=== PATIENT | male | born 1935 | race Caucasian/White ===

== ENCOUNTER 2018-04-19 16:21 | Inpatient (IN) | payer MEDICARE, SELFPAY ==
[2018-04-19] VITALS (7 sets, daily range): BP systolic 126–157; BP diastolic 62–115; PULSE 66–91; RESP 16–22; TEMP 36.8–37.2; O2SAT 88–95
--- NOTE | 2018-04-19 16:51 | DI.RAD.S_ITS ---
PROCEDURE: XR CHEST 2V INDICATIONS: right sided effusion TECHNIQUE: 2 views of the chest were acquired. COMPARISON: ABHINAV Yee, XR CXR 2V, 05/05/2014, 10:44. JAIDEN Yee, CHEST 2 VIEW, 04/29/2014, 11:56. FINDINGS: Surgical changes and devices: None. Lungs and pleura: A moderate right-sided pleural effusion is seen, with overlying presumed atelectasis. No significant left-sided pleural effusion is seen. No pneumothorax. Mediastinum: The cardiac contours are within normal limits. The aorta demonstrates calcification and tortuosity. Bones and chest wall: No suspicious bony abnormalities. Age-appropriate bony degenerative changes are seen. Soft tissues appear unremarkable. IMPRESSION: Moderate right-sided pleural effusion. Dictated by: Eric Sweeney M.D. on 04/19/2018 at 16:15 Approved by: Eric Sweeney M.D. on 04/19/2018 at 16:16
[2018-04-19 17:06] LABS: Add Manual Diff / Slide Review NO; Basophils Percent Auto 0.1 % (0-2); Hematocrit 43.2 % (41-53); Hemoglobin 14.5 g/dL (13.5-17.5); Lymphocytes Percent Auto 3.3 % (25-40); Mean Corpuscular HGB Conc 33.5 % (30-36); Mean Corpuscular Hemoglobin 31.7 PG (26-34); Mean Corpuscular Volume 94.5 fL (80-100); Neutrophils Absolute Auto 10300 /uL (3000-5900); Neutrophils Percent Auto 90.6 % (50-75); Platelet Count 145 X10^3/uL (150-400); Red Blood Cell Count 4.57 X10^6/uL (4.5-5.9); Red Cell Distribution Width 15.7 % (11.6-14.8); White Blood Cell Count 11.4 X10^3/uL (4.5-11.0)
--- NOTE | 2018-04-19 17:11 | PC.NURSE ---
Sent from Dr. Slaughter for fever, chest pain and significant pleural effusion. No information received from Dr. Slaughter's office by fax.
--- NOTE | 2018-04-19 17:16 | PC.NURSE ---
Dr. pat aware of sat 88%. States to tolerate sat 88 and above.
[2018-04-19 17:19] LABS: Lactate (Lactic Acid) 1.7 mmol/L (0.7-2.1)
[2018-04-19 17:25] LABS: BUN Creatinine Ratio 42.9 (6-22); Blood Urea Nitrogen 30 mg/dL (9-20); Calcium 9.2 mg/dL (8.4-10.2); Carbon Dioxide 35 mmol/L (22-32); Chloride 92 mmol/L (98-107); Estimated Glomerular Filt Rate > 60.0 mL/min (>60); Glucose 127 mg/dL (80-110); HEMOLYSIS < 15 (0-50); Potassium 4.3 mmol/L (3.4-5.1); Sodium 132 mmol/L (137-145)
[2018-04-19 17:55] LABS: Procalcitonin 0.06 ng/mL (<0.5)
--- NOTE | 2018-04-19 18:19 | DI.CT.S_ITS ---
PROCEDURE: CT CHEST ABD PEL W CON INDICATIONS: Right effusion - mass?. History of non-Hodgkin's lymphoma in 2007. TECHNIQUE: After the administration of oral and intravenous contrast, 5 mm thick sections acquired from the lung apices to the symphysis. 5 mm coronal and sagittal reformats were performed, with additional 7 mm coronal MIP reformats through the lungs. For radiation dose reduction, the following was used: automated exposure control, adjustment of mA and/or kV according to patient size. COMPARISON: [facility], RG, XR CXR 2V, 05/05/2014, 10:44. [facility], CR, XR CHEST 2V, 04/19/2018, 16:37. FINDINGS: Image quality: Excellent. CHEST: Lungs and pleura: No acute airspace opacities. Moderate right pleural effusion. There is right basilar compression atelectasis. No pneumothorax. Central and peripheral airways appear patent and normal in caliber. Mediastinum: Heart size is normal. No pericardial effusion. No mediastinal or hilar adenopathy by size criteria. Thoracic aorta and central pulmonary arteries are normal in size. Esophagus is normal in caliber. No hiatal hernia. Chest wall: No axillary or supraclavicular adenopathy by size criteria. Thyroid gland is unremarkable. ABDOMEN: Solid organs: Liver is normal in size and enhancement. Gallbladder is full of gallstones. Biliary system is non dilated. Pancreas enhances normally. Spleen is normal in size and enhancement. No adrenal nodules. Kidneys demonstrate normal size and enhancement, without hydronephrosis. Peritoneum and bowel: There is a percutaneous gastrostomy. Bowel loops demonstrate normal wall thickness and caliber. There are numerous colonic diverticula. No evidence for acute diverticulitis. No free fluid or air. Nodes and vessels: No retroperitoneal or mesenteric adenopathy by size criteria. Aorta and inferior vena cava are normal in size. Miscellaneous: No ventral hernias. PELVIS: Genitourinary: Bladder wall thickness is normal. Prostate is enlarged. Miscellaneous: No inguinal hernias or adenopathy. Bones: No suspicious bony lesions. No vertebral body compression fractures. There are degenerative changes in the thoracic and lumbar spine. IMPRESSION: 1. Moderate right pleural effusion. 2. Right basilar compression atelectasis. 3. Cholelithiasis. 4. Diverticulosis without acute diverticulitis. 5. Enlarged prostate. Dictated by: Mei Pennington M.D. on 04/19/2018 at 19:36 Approved by: Mei Pennington M.D. on 04/19/2018 at 19:47
--- NOTE | 2018-04-19 18:26 | ED_ITS ---
HPI - Recheck/Abnormal Lab/Rx General Chief Complaint: Recheck/Abnormal Lab/Rx Stated Complaint: SENT FOR THOROCENTESIS History of Present Illness HPI narrative: HPI 82-year-old male with history of CHF, A. fib (no anticoagulation), hypothyroidism, non-Hodgkin's lymphoma (in remission 10+years, with secondary esophageal scarring s/p PEG tube) presents with worsening shortness of breath, cough, and subjective fevers for the last 2 days, noted to have a recurrent right pleural effusion (drained 4 times previously). Patient denies chest pain, shortness breath, continues to pass flatus and stool at baseline. M/S/F/SocHx notable for: please see HPI; remainder reviewed with patient and in chart. ROS: Negative constitutional, eye, cardiovascular, pulmonary, GI, , MSK, skin , neurologic, psychiatric, endocrine unless noted in the HPI. Exam Gen: Pleasant, non-toxic appearing, resting comfortably. HEENT: NC, AT, PEERL, EOMI. Resp: breath sounds present in the right apex, left lung with breath sounds, right lung base with absent breath sounds, normal work of breathing. Bedside ultrasound and bilateral lung zones 1, 2, and the hemidiaphragm with no effusion on left side, 3+ B-lines on all left side lung zones, and right-sided hemidiaphragm and lung zone one with moderate to large pleural effusion, apex with lung sliding and 3+ B-lines. Card: Regular rate and rhythm with no murmurs, rubs, or gallops, extremities warm and well perfused. Bedside ultrasound of an apical 4 chamber view, parasternal long, parasternal short without pericardial effusion. GI: Non-tender to palpation throughout all quadrants, no focal tenderness at McBurney's point, negative Garcia's sign, non-distended, no rebound or guarding. : No suprapubic tenderness to palpation. MSK: No visible deformities, strength and tone without visually appreciable deficit. Skin: Normal color with no visible lesions. Neuro: AO x 3, no facial asymmetry, vision and hearing WNL. Psych: Mood and affect appropriate. Labs / Imaging: CXR: moderate right-sided pleural effusion. WBC 11.4, HB 14.5, sodium 132, potassium 4.3, lactic acid 1.7, BNP 2000, procalcitonin 0.06 MDM Previous chart, nursing note, labs, imaging, and vitals reviewed. A: 82-year-old male with history of CHF, A. fib (no anticoagulation), hypothyroidism, non-Hodgkin's lymphoma (in remission 10+years, with secondary esophageal scarring s/p PEG tube) presents with worsening shortness of breath, cough, and subjective fevers for the last 2 days, noted to have a recurrent right pleural effusion (drained 4 times previously). DDx: effusion 2/2 pneumonia, malignancy, CHF. Evaluation: patient with moderate to large right side effusion, SaO2 88% on room air. Based on history and overall clinical trajectory, as well as an absence of significant leukocytosis, and a negative procalcitonin strongly doubt pneumonia. Patient admitted for drainage by IR and further management as appropriate. Blood cultures ordered and pending. Disposition: patient admitted for further care. Impression: right-sided effusion Related Data Home Medications Medication Instructions Recorded Confirmed allopurinol 300 mg PO DAILY 04/19/18 04/19/18 amiodarone 200 mg PO DAILY 04/19/18 04/19/18 aspirin 81 mg PO DAILY 04/19/18 04/19/18 beclomethasone dipropionate [Qvar 1 puff INHALATION DIRECTED 04/19/18 RediHaler] beclomethasone dipropionate [Qvar 2 puff INHALATION Q12H 04/19/18 04/19/18 RediHaler] ferrous sulfate 325 mg PO DAILY 04/19/18 04/19/18 furosemide 20 mg PO DAILY 04/19/18 04/19/18 ipratropium-albuterol [Combivent 1 puff INHALATION Q6H PRN 04/19/18 04/19/18 Respimat] levothyroxine 112 mcg PO DAILY 04/19/18 04/19/18 loratadine 5 mg PO DAILY 04/19/18 04/19/18 ondansetron HCl [Zofran] 4 mg PO Q6-8H PRN 04/19/18 04/19/18 Allergies Allergy/AdvReac Type Severity Reaction Status Date / Time Sulfa (Sulfonamide Allergy Severe INABILITY Unverified 12/27/17 12:10 Antibiotics) TO BREATH [SULFA (SULFONAMIDE ANTIBIOTICS)] tetanus and diphtheria Allergy Severe MEMORY Unverified 12/27/17 12:10 toxoids LOSS, [TETANUS & DIPHTHERIA SWEATING TOXOIDS] Tetracyclines [TETRACYCLINES] Allergy Severe INABILITY Unverified 12/27/17 12:10 TO BREATH codeine [CODEINE] Allergy Intermediate NAUSEA Unverified 12/27/17 12:10 morphine [MORPHINE] Allergy Intermediate NAUSEA Unverified 12/27/17 12:10 Penicillins [PENICILLINS] Allergy Intermediate RASH Unverified 12/27/17 12:10 PFSH Social History Smoking Status: Never smoker Exam Initial Vital Signs Initial Vital Signs: Vital Signs Temperature 98.3 F 04/19/18 16:27 Pulse Rate 91 H 04/19/18 16:27 Respiratory Rate 16 04/19/18 16:27 Blood Pressure 126/62 H 04/19/18 16:27 Pulse Oximetry 92 04/19/18 16:27 Course Orders Ordered: ED Orders 04/19/18 16:50 B Type Natriuretic Peptide Stat Basic Metabolic Panel Stat Blood Culture Stat Complete Blood Count AUTO DIFF Stat Lactate (Lactic Acid) Stat Procalcitonin Stat 04/19/18 16:51 XR chest 2V Stat 04/19/18 18:17 CT chest w con Stat Troponin I Stat EKG-12 Lead Stat 04/19/18 18:19 CT chest abd pel w con Stat Vital Signs - 8 hr 04/19/18 16:27 04/19/18 17:00 04/19/18 17:15 Temperature 98.3 F Pulse Rate 91 H 68 70 Respiratory Rate 16 22 20 Blood Pressure 126/62 H Blood Pressure [Left Arm] 148/90 H Pulse Oximetry 92 92 88 L 04/19/18 18:02 Temperature Pulse Rate 66 Respiratory Rate 20 Blood Pressure Blood Pressure [Left Arm] 139/76 H Pulse Oximetry 95 MDM - Recheck/Abnormal Lab/Rx Lab Data Result diagrams: 04/19/18 16:50 04/19/18 16:50 Lab Results 04/19/18 04/19/18 04/19/18 Range/Units 16:50 16:50 16:50 WBC 11.4 H (4.5-11.0) X10^3/uL RBC 4.57 (4.5-5.9) X10^6/uL Hgb 14.5 (13.5-17.5) g/dL Hct 43.2 (41-53) % MCV 94.5 (80-100) fL MCH 31.7 (26-34) PG MCHC 33.5 (30-36) % RDW 15.7 H (11.6-14.8) % Plt Count 145 L (150-400) X10^3/uL Neut % (Auto) 90.6 H (50-75) % Lymph % (Auto) 3.3 L (25-40) % [place] % (Auto) 6.0 (3-14) % Eos % (Auto) 0.0 L (2-4) % Baso % (Auto) 0.1 (0-2) % Neut # (Auto) 33173 H (9453-6288) /uL Sodium 132 L (137-145) mmol/L Potassium 4.3 (3.4-5.1) mmol/L Chloride 92 L (98-107) mmol/L Carbon Dioxide 35 H (22-32) mmol/L BUN 30 H (9-20) mg/dL Creatinine 0.70 (0.66-1.25) mg/dL Estimated GFR > 60.0 (>60) mL/min BUN/Creatinine Ratio 42.9 H (6-22) Glucose 127 H (80-110) mg/dL Lactate (0.7-2.1) mmol/L Calcium 9.2 (8.4-10.2) mg/dL B-Natriuretic Peptide 2000.0 H (<100) Procalcitonin 0.06 (<0.5) ng/mL 04/19/18 Range/Units 16:50 WBC (4.5-11.0) X10^3/uL RBC (4.5-5.9) X10^6/uL Hgb (13.5-17.5) g/dL Hct (41-53) % MCV (80-100) fL MCH (26-34) PG MCHC (30-36) % RDW (11.6-14.8) % Plt Count (150-400) X10^3/uL Neut % (Auto) (50-75) % Lymph % (Auto) (25-40) % [place] % (Auto) (3-14) % Eos % (Auto) (2-4) % Baso % (Auto) (0-2) % Neut # (Auto) (6401-7721) /uL Sodium (137-145) mmol/L Potassium (3.4-5.1) mmol/L Chloride (98-107) mmol/L Carbon Dioxide (22-32) mmol/L BUN (9-20) mg/dL Creatinine (0.66-1.25) mg/dL Estimated GFR (>60) mL/min BUN/Creatinine Ratio (6-22) Glucose (80-110) mg/dL Lactate 1.7 (0.7-2.1) mmol/L Calcium (8.4-10.2) mg/dL B-Natriuretic Peptide (<100) Procalcitonin (<0.5) ng/mL Discharge Plan Departure Prescriptions: No Action amiodarone 200 mg Tablet 200 mg PO DAILY RF: 0 allopurinol 300 mg Tablet 300 mg PO DAILY RF: 0 furosemide 20 mg Tablet 20 mg PO DAILY RF: 0 levothyroxine 112 mcg Tablet 112 mcg PO DAILY RF: 0 beclomethasone dipropionate [Qvar RediHaler] 80 mcg/actuation Hfa Aerosol Breath Activated 1 puff Inhalation DIRECTED RF: 0 loratadine 5 mg/5 mL Solution 5 mg PO DAILY RF: 0 ondansetron HCl [Zofran] 4 mg/5 mL Solution 4 mg PO Q6-8H PRN (Reason: Nausea) RF: 0 ferrous sulfate 325 mg (65 mg iron) Tablet 325 mg PO DAILY RF: 0 aspirin 81 mg Tablet,Chewable 81 mg PO DAILY RF: 0 ipratropium-albuterol [Combivent Respimat] 20-100 mcg/actuation Mist 1 puff INHALATION Q6H PRN (Reason: Wheezing) RF: 0 beclomethasone dipropionate [Qvar RediHaler] 80 mcg/actuation Hfa Aerosol Breath Activated 2 puff INHALATION Q12H RF: 0
[2018-04-19 20:03] LABS: Troponin I 0.028 ng/mL (0.01-0.034)
--- NOTE | 2018-04-19 22:17 | PC.NURSE ---
Addendum entered by Ellen Patiño R.N. 04/19/18 22:36: Notified Dr. Back regarding Cardiac Rhythm: Afib with large Block as reported by ICU nurse. Also clarified that patient is able to feed with Peptamen supplementation via PEG tube as per home routine. Original Note: [facility] shift note: Patient admitted to from ED accompanied by . Ambulated from gurney to bed, steady. Continue on O2 at 2L via NC, O2 sat 96%. SOB at rest, accessory muscle use noted. Speaking in 2-3 word sentences. Occasional non productive cough. PEG tube to LLQ secured/no erythema to surrounding skin, placed 12 years ago. Does not take anything by mouth. brought nutritional supplement Peptamen from home (partially digested supplement) mizxed with Distilled water. BA active and call light within reach. 2146 Dr. Back at bedside.
--- NOTE | 2018-04-19 22:31 | PM.HP.1 ---
History of Present Illness Date Patient Seen: 04/19/18 Time Patient Seen: 18:32 Chief complaint: SENT FOR THOROCENTESIS Narrative: [age] years of age male presents to the emergency room complaint of of shortness of breath. Symptom onset in the past few days with worsening. Patient notes having similar symptoms in the past when he had pleural effusion that responded to the thoracentesis procedure. Patient normally is on Lasix at home once a day. He might increase the dose to twice daily when he seems to be retaining fluid. Patient with a history of non-Hodgkin's lymphoma that was diagnosed 12 years ago. 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 Patient has required a PEG tube to maintain adequate nutrition and fluids over the past 12 years. On prior thoracentesis of the fluid was analyzed and there was no malignant cells found. In the ER patient has a BNP of 2000. The pleural effusion is likely related to congestive heart failure. The pleural effusion is reported as a moderate amount of right pleural fluid effusion. Tentative plan to have patient undergo thoracentesis tomorrow with Interventional Radiology. Patient History Comment: Past medical history Non-Hodgkin's lymphoma Recurrent pleural effusion . Congestive heart failure Will provide Lasix at 40 mg IV q.12 hours. History of hypertension and hypothyroidism Continue home medications as tolerated Family history mother with multiple myeloma Family & Social History Family History: Reviewed 04/19/18 by Franko Back MD Social History: household members spouse Prior Living Arrangements House Safety & Behavioral: Feels Safe in Current Yes Environment Been Physically Hurt or No Threatened By a Person Suicidal Ideation Description None Tobacco & Substance use: Tobacco type cigarettes Smoking Status Never smoker alcohol intake frequency 0-2 drinks per day Substance Use Type does not use Meds Home Medications Medication Instructions Recorded Confirmed Type allopurinol 300 mg PO DAILY 04/19/18 04/19/18 History amiodarone 200 mg PO DAILY 04/19/18 04/19/18 History aspirin 81 mg PO DAILY 04/19/18 04/19/18 History beclomethasone dipropionate [Qvar 1 puff INHALATION DIRECTED 04/19/18 04/19/18 History RediHaler] beclomethasone dipropionate [Qvar 2 puff INHALATION Q12H 04/19/18 04/19/18 History RediHaler] ferrous sulfate 325 mg PO DAILY 04/19/18 04/19/18 History furosemide 20 mg PO DAILY 04/19/18 04/19/18 History ipratropium-albuterol [Combivent 1 puff INHALATION Q6H PRN 04/19/18 04/19/18 History Respimat] levothyroxine 112 mcg PO DAILY 04/19/18 04/19/18 History loratadine 5 mg PO DAILY 04/19/18 04/19/18 History ondansetron HCl [Zofran] 4 mg PO Q6-8H PRN 04/19/18 04/19/18 History Allergies Allergy/AdvReac Type Severity Reaction Status Date / Time Sulfa (Sulfonamide Allergy Severe INABILITY Unverified 12/27/17 12:10 Antibiotics) TO BREATH [SULFA (SULFONAMIDE ANTIBIOTICS)] tetanus and diphtheria Allergy Severe MEMORY Unverified 12/27/17 12:10 toxoids LOSS, [TETANUS & DIPHTHERIA SWEATING TOXOIDS] Tetracyclines [TETRACYCLINES] Allergy Severe INABILITY Unverified 12/27/17 12:10 TO BREATH codeine [CODEINE] Allergy Intermediate NAUSEA Unverified 12/27/17 12:10 morphine [MORPHINE] Allergy Intermediate NAUSEA Unverified 12/27/17 12:10 Penicillins [PENICILLINS] Allergy Intermediate RASH Unverified 12/27/17 12:10 Review of Systems Review of Systems A 10 point review of system was negative except for the symptoms of cough and shortness of breath. No recent fevers and chills no nausea no vomiting no chest pain. Exam Vital Signs (past 8 hours): - 04/19/18 16:27 04/19/18 17:00 04/19/18 17:15 Temperature 98.3 F Pulse Rate 91 H 68 70 Respiratory Rate 16 22 20 Blood Pressure 126/62 H Blood Pressure [Left Arm] 148/90 H Pulse Oximetry 92 92 88 L 04/19/18 18:02 04/19/18 19:14 04/19/18 20:41 Temperature 99.0 F Pulse Rate 66 70 75 Respiratory Rate 20 18 20 Blood Pressure 157/107 H Blood Pressure [Left Arm] 139/76 H 148/70 H Pulse Oximetry 95 95 95 Oxygen Delivery Method Nasal Cannula Oxygen Flow Rate 1 Narrative Exam Narrative: General appearance Fairly cachectic appearing male with [id number] protein calorie malnutrition Skin No rashes or lesions. Psychiatric Well oriented mood is pleasant cooperative affect is appropriate Eyes Pupils are equal round and reactive to light Ears nose and throat Hearing grossly intact nose septum to midline no oropharyngeal lesions noted Respiratory fairly clear to auscultation no wheezes crackles Cardiovascular Regular rate rhythm no murmur rubs or gallops GI Fairly soft nontender positive bowel sounds and no organomegaly is noted Neurologic No focal neurologic changes cranial nerves 2-12 grossly intact Musculo skeletal 5/5 motor strength, range of motion is normal, no clubbing Lymph nodes No lymphadenopathy to neck or axilla Objective Labs Result Diagrams: 04/19/18 16:50 04/19/18 16:50 Labs: Laboratory Results - last 24 hr 04/19/18 04/19/18 04/19/18 16:50 16:50 16:50 WBC 11.4 H RBC 4.57 Hgb 14.5 Hct 43.2 MCV 94.5 MCH 31.7 MCHC 33.5 RDW 15.7 H Plt Count 145 L Neut % (Auto) 90.6 H Lymph % (Auto) 3.3 L [place] % (Auto) 6.0 Eos % (Auto) 0.0 L Baso % (Auto) 0.1 Neut # (Auto) 63165 H Sodium 132 L Potassium 4.3 Chloride 92 L Carbon Dioxide 35 H BUN 30 H Creatinine 0.70 Estimated GFR > 60.0 BUN/Creatinine Ratio 42.9 H Glucose 127 H Lactate Calcium 9.2 Troponin I B-Natriuretic Peptide 2000.0 H Procalcitonin 0.06 04/19/18 04/19/18 16:50 18:35 WBC RBC Hgb Hct MCV MCH MCHC RDW Plt Count Neut % (Auto) Lymph % (Auto) [place] % (Auto) Eos % (Auto) Baso % (Auto) Neut # (Auto) Sodium Potassium Chloride Carbon Dioxide BUN Creatinine Estimated GFR BUN/Creatinine Ratio Glucose Lactate 1.7 Calcium Troponin I 0.028 B-Natriuretic Peptide Procalcitonin Assessment & Plan Plan: Assessment/Plan Narrative: 1. Right right pleural effusion Thoracentesis in a.m. by intervention Radiology as planned. Lasix 40 mg IV q.12 hours being provided. 2. History of non-Hodgkin's lymphoma 12 years ago status post radiation therapy with side effect of esophageal occlusion status post PEG placement 12 years ago 3. History of hypothyroidism and hypertension continue home medications as tolerated 4. Congestive heart failure Lasix 40 mg IV q.12 hours continue to monitor the patient's weight and I&Os. Discharge planning Patient will likely require several days in the hospital before appropriate for discharge to home. Time Spent With Patient Time with patient: Greater than 35 minutes (65 min)
[2018-04-20] VITALS (11 sets, daily range): BP systolic 124–161; BP diastolic 65–96; PULSE 63–75; RESP 14–18; TEMP 36.6–37; O2SAT 88–100
--- NOTE | 2018-04-20 | DI.RAD.S_ITS ---
PROCEDURE: XR CHEST 1V INDICATIONS: POST THORACENTESIS TECHNIQUE: One view of the chest was acquired. COMPARISON: [facility], CR, XR CHEST 2V, 04/19/2018, 16:37. FINDINGS: Surgical changes and devices: None. Lungs and pleura: There is interval decrease in amount of right pleural effusion consistent with recent thoracentesis. Trace amount of residual right pleural effusion and right basilar atelectasis is seen. No gross pneumothorax. Mediastinum: Mediastinal contours appear normal. Heart size is enlarged. Bones and chest wall: No suspicious bony lesions. Overlying soft tissues appear unremarkable. IMPRESSION: Post thoracentesis with trace amount of residual right pleural effusion and right atelectasis. No gross pneumothorax. of residual Dictated by: Maciej Black M.D. on 04/20/2018 at 14:25 Approved by: Maciej Black M.D. on 04/20/2018 at 14:33
--- NOTE | 2018-04-20 | PATH_ITS ---
Note [facility] Accession Number: [id number] TESTS RESULT FLAG UNITS REF RANGE LAB Clinician Provided Cytology Information No. of containers..01 Other (Miscellaneous) 01 RT PLEURAL EFFUSION DIAGNOSIS: RT PLEURAL EFFUSION NEGATIVE FOR MALIGNANT CELLS. Pathologist ICD10: 02 J90 Aime Bone MD, Pathologist NPI- [id number] Isaias Koch, Chief Lending Officer ([facility]) 01 60 CC, YELLOW, CLEAR /LCS FLAG LEGEND: L-Low Normal,H-High Normal,LL-Alert Low,HH-Alert High <-Panic Low,>-Panic High,A-Abnormal,AA-Critical Abnormal Performed at: 01 =Z [facility] [address] [place] [address] [address] [facility], [place] [address] Roger Crespo MD, 02 LCLWA [facility] [address] [place] [id number] Danny Doll MD, Performed at: 01 [facility] [address], [place], [place] [id number] MD Roger Crespo MD Phone: [phone]
--- NOTE | 2018-04-20 | DI.US.S_ITS ---
PROCEDURE: US THORACENTESIS INDICATIONS: PLEURAL EFFUSION; THERAPEAUTIC AND DIAGNOSTIC TECHNIQUE: The indications, alternatives, benefits, risks, and complications of the procedure were explained to the patient. Written informed consent was obtained and placed in the chart. The chest was examined sonographically, and an appropriate site was chosen for thoracentesis. The skin was prepared and draped in the usual sterile fashion, and 1% lidocaine was infiltrated from the skin down through the pleural surface. A 19-gauge catheter-covered needle was then introduced into the pleural space, the catheter was advanced and the needle was withdrawn, and thereafter pleural fluid was aspirated. The catheter was then removed and a dressing was applied. COMPARISON: None. FINDINGS: Access site: Right lower posterior hemithorax. Needle: One-Step centesis catheter with introducer needle. Fluid volume and description: A total of 1.1 L of clear yellow fluid was removed from the right hemithorax. Fluid sent for diagnostic testing: Initial pleural fluid was sent for diagnostic testing. Medications: 1% lidocaine for local anaesthesia. Complications: Patient reports improved breathing after the procedure and denies any pain or discomfort. A postprocedure chest radiograph demonstrates a small pneumothorax at the right lung base. IMPRESSION: Ultrasound-guided right thoracentesis. A small right basilar pneumothorax is seen on the immediate post-thoracentesis chest radiograph. A followup chest radiograph in 2 hours is recommended. These results and recommendations were discussed with the patient's inpatient provider Dr. Franko Back at [facility] at 2:25 PM on 04/20/2018. Dictated by: Camilo Singh M.D. on 04/20/2018 at 14:36 Approved by: Camilo Singh M.D. on 04/20/2018 at 14:40
--- NOTE | 2018-04-20 | DI.RAD.S_ITS ---
PROCEDURE: XR CHEST 1V INDICATIONS: POST THORACENTESIS PNEUMO FOLLOW UP TECHNIQUE: One view of the chest was acquired. COMPARISON: [facility], US, US THORACENTESIS, 04/20/2018, 13:41. [facility], CT, CT CHEST ABD PEL W CON, 04/19/2018, 18:46. [facility], CR, XR CHEST 2V, 04/19/2018, 16:37. [facility], CR, XR CHEST 1V, 04/20/2018, 13:50. FINDINGS: Surgical changes and devices: Multiple EKG leads and a monitoring device project over the chest and upper abdomen. Lungs and pleura: Small left pleural effusion, which is decreased from chest radiograph of 04/19/18 but similar to post thoracocentesis chest radiograph of 04/20/18. No pneumothorax. The previous finding concerning for pneumothorax likely represents the right minor fissure demonstrating an atypical contour. Bibasilar pulmonary opacities are noted. Mediastinum: Mediastinal contours appear normal. Calcification of the thoracic aorta noted. Heart size is normal. Bones and chest wall: Osseous structures are unchanged from prior exam, with persistent inferior subluxation of the right humeral head. IMPRESSION: No pneumothorax. Small residual left pleural effusion post-thoracentesis. Mild bibasilar atelectasis. Dictated by: Camilo Singh M.D. on 04/20/2018 at 16:04 Approved by: Camilo Singh M.D. on 04/20/2018 at 16:09
[2018-04-20] MEDS: METOPROLOL 25 MG TABLET PO (00:11)
[2018-04-20] MEDS: FUROSEMIDE 40 MG/4 ML VIAL IV ×3 (00:13→23:57)
[2018-04-20 08:15] LABS: Acinetobacter baumannii Not Detected (Not Detect); Candida albicans Not Detected (Not Detect); Candida glabrata Not Detected (Not Detect); Candida krusei Not Detected (Not Detect); Candida parapsilosis Not Detected (Not Detect); Candida tropicalis Not Detected (Not Detect); E. coli Not Detected (Not Detect); Enterobacter cloacae complex Not Detected (Not Detect); Enterobacteriaceae species Not Detected (Not Detect); Enterococcus species Not Detected (Not Detect); Haemophilus influenzae Not Detected (Not Detect); Listeria monocytogenes Not Detected (Not Detect); Neisseria meningitidis Not Detected (Not Detect); Proteus species Not Detected (Not Detect); Pseudomonas aeruginosa Not Detected (Not Detect); Serratia marcescens Not Detected (Not Detect); Staphylococcus species Not Detected (Not Detect); Streptococcus pneumonia Not Detected (Not Detect); Streptococcus pyogenes (Gr A) Not Detected (Not Detect); Streptococcus species Detected (Not Detect)
[2018-04-20 08:16] LABS: Streptococcus agalactiae (Gr B Detected (Not Detect)
--- NOTE | 2018-04-20 08:18 | PC.NURSE ---
Day shift: Call from Lab about Pt pos for strep B in blood. Dr Spence notified.
[2018-04-20] MEDS: ALLOPURINOL 300 MG TABLET PO (08:50)
[2018-04-20] MEDS: AMIODARONE 200 MG TABLET PO (08:50)
[2018-04-20] MEDS: FERROUS SULFATE 325 MG TABLET PO (08:51)
[2018-04-20] MEDS: LORATADINE 10 MG TABLET 5 MG PO (08:51)
[2018-04-20] MEDS: ASPIRIN 81 MG TAB PO (09:02)
[2018-04-20] MEDS: COMBIVENT 2 EACH INH (11:37)
[2018-04-20 11:49] LABS: INR 1.3 (0.9-1.3); Prothrombin Time 13.9 SECONDS (10.1-12.7)
--- NOTE | 2018-04-20 12:44 | CM.DANOTE ---
DCP Cont: Case received, EMR reviewed and met with patient. Introduced self and role. DCP template completed with information currently available. Patient is an 82 year old male who was admitted yesterday evening to the care of the hospitalist team. PCP: Dr. De La Cruz in [place], and Dr. Slaughter on [place]. Payer: confirmed: Medicare. Patient carries a diagnosis of Pleural Effusion, has history of Non-Hodgkins Lymphoma. Patient alert and oriented, by his side. Stated that he has had fluid retention before. Lives on [place] for the summer, and in [place] fall and winter months. Has a supportive as well. P: DCP to continue to plan and assess, home health may be an option. Sparkle Farias RN/[employer]
--- NOTE | 2018-04-20 12:45 | P.PN_ITS ---
Subjective Date Patient Seen: 04/20/18 Time Patient Seen: 12:42 Interval history: History of present illness Follow-up on patient with a right pleural effusion causing respiratory distress. We are waiting for patient to undergo therapeutic thoracentesis. Review of system Patient notes feeling much better since he was admitted yesterday. Note I started patient on Lasix at 40 mg IV q.12 hours. He normally just takes Lasix 20 mg once in the morning. No chest pain or shortness of breath no nausea Exam Vital Signs (past 8 hours): - 04/20/18 06:25 04/20/18 07:40 04/20/18 11:20 Temperature 98.6 F 97.9 F Pulse Rate 65 63 Respiratory Rate 16 14 Blood Pressure 161/96 H 147/89 H Pulse Oximetry 93 92 97 04/20/18 11:21 04/20/18 11:42 04/20/18 12:41 Temperature Pulse Rate 71 Respiratory Rate 18 Blood Pressure Pulse Oximetry 88 L 95 Oxygen Delivery Method Room Air Oxygen Flow Rate 0 Narrative Exam Narrative: General appearance Patient is awake and alert in no apparent distress. Vital signs is noted Psychiatric Well oriented no apparent distress mood is pleasant affect is appropriate Respiratory Fair breath sounds are noted bilateral no wheezes no crackles Cardiovascular Regular rate rhythm no murmurs noted GI Abdomen is soft nontender positive bowel sounds no masses no distension no guarding no bruits Neurologic No focal neurologic changes cranial nerves 2-12 grossly intact Objective Labs Result Diagrams: 04/19/18 16:50 04/19/18 16:50 Labs: Laboratory Results - last 24 hr 04/19/18 04/19/18 04/19/18 16:50 16:50 16:50 WBC 11.4 H RBC 4.57 Hgb 14.5 Hct 43.2 MCV 94.5 MCH 31.7 MCHC 33.5 RDW 15.7 H Plt Count 145 L Neut % (Auto) 90.6 H Lymph % (Auto) 3.3 L [place] % (Auto) 6.0 Eos % (Auto) 0.0 L Baso % (Auto) 0.1 Neut # (Auto) 27112 H PT INR Sodium 132 L Potassium 4.3 Chloride 92 L Carbon Dioxide 35 H BUN 30 H Creatinine 0.70 Estimated GFR > 60.0 BUN/Creatinine Ratio 42.9 H Glucose 127 H Lactate Calcium 9.2 Troponin I B-Natriuretic Peptide 2000.0 H Procalcitonin 0.06 A. baumannii (PCR) Leana albicans (PCR) C. glabrata (PCR) C. krusei (PCR) C. parapsilosis (PCR) C. tropicalis (PCR) Enterobacteriac sp PCR E. cloacae complex PCR Enterococcus sp PCR E. coli (PCR) H. influenzae (PCR) Klebsiella oxytoca PCR Klebsiella pneumoniae List. monocytogenes PCR N. meningitidis (PCR) Proteus species (PCR) Serratia marcescens PCR Staphylococcus sp PCR Staph aureus (PCR) mecA-Methicil Res Gene Streptococcus sp PCR Group A Strep (PCR) Strep agalactiae (PCR) Strep pneumoniae (PCR) P. aeruginosa (PCR) Ephraim/B-Vanco Res Genes KPC-Carbap Res Gene PCR 04/19/18 04/19/18 04/19/18 16:50 16:50 18:35 WBC RBC Hgb Hct MCV MCH MCHC RDW Plt Count Neut % (Auto) Lymph % (Auto) [place] % (Auto) Eos % (Auto) Baso % (Auto) Neut # (Auto) PT INR Sodium Potassium Chloride Carbon Dioxide BUN Creatinine Estimated GFR BUN/Creatinine Ratio Glucose Lactate 1.7 Calcium Troponin I 0.028 B-Natriuretic Peptide Procalcitonin A. baumannii (PCR) Not detected Leana albicans (PCR) Not detected C. glabrata (PCR) Not detected C. krusei (PCR) Not detected C. parapsilosis (PCR) Not detected C. tropicalis (PCR) Not detected Enterobacteriac sp PCR Not detected E. cloacae complex PCR Not detected Enterococcus sp PCR Not detected E. coli (PCR) Not detected H. influenzae (PCR) Not detected Klebsiella oxytoca PCR Not detected Klebsiella pneumoniae Not detected List. monocytogenes PCR Not detected N. meningitidis (PCR) Not detected Proteus species (PCR) Not detected Serratia marcescens PCR Not detected Staphylococcus sp PCR Not detected Staph aureus (PCR) Not detected mecA-Methicil Res Gene Not Reportable Streptococcus sp PCR Detected H Group A Strep (PCR) Not detected Strep agalactiae (PCR) Detected H Strep pneumoniae (PCR) Not detected P. aeruginosa (PCR) Not detected Ephraim/B-Vanco Res Genes Not Reportable KPC-Carbap Res Gene PCR Not Reportable 04/20/18 11:00 WBC RBC Hgb Hct MCV MCH MCHC RDW Plt Count Neut % (Auto) Lymph % (Auto) [place] % (Auto) Eos % (Auto) Baso % (Auto) Neut # (Auto) PT 13.9 H INR 1.3 Sodium Potassium Chloride Carbon Dioxide BUN Creatinine Estimated GFR BUN/Creatinine Ratio Glucose Lactate Calcium Troponin I B-Natriuretic Peptide Procalcitonin A. baumannii (PCR) Leana albicans (PCR) C. glabrata (PCR) C. krusei (PCR) C. parapsilosis (PCR) C. tropicalis (PCR) Enterobacteriac sp PCR E. cloacae complex PCR Enterococcus sp PCR E. coli (PCR) H. influenzae (PCR) Klebsiella oxytoca PCR Klebsiella pneumoniae List. monocytogenes PCR N. meningitidis (PCR) Proteus species (PCR) Serratia marcescens PCR Staphylococcus sp PCR Staph aureus (PCR) mecA-Methicil Res Gene Streptococcus sp PCR Group A Strep (PCR) Strep agalactiae (PCR) Strep pneumoniae (PCR) P. aeruginosa (PCR) Ephraim/B-Vanco Res Genes KPC-Carbap Res Gene PCR Assessment & Plan Plan: Assessment/Plan Narrative: 1. Right right pleural effusion Thoracentesis in a.m. by intervention Radiology as planned today. Lasix 40 mg IV q.12 hours was started last night when I admitted him. Note I submitted pleural fluid analysis orders for: LDH, WBC w/ diff, Culture. Total Protein, Glucose, pH, Cytology and Cholesterol 2. 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 History of hypothyroidism and hypertension continue home medications as tolerated 4. Congestive heart failure Lasix 40 mg IV q.12 hours started. continue to monitor the patient's weight and I&Os. Discharge planning Patient will likely require another day in the hospital before appropriate for discharge to home. Perhaps suitable for discharge to home tomorrow? Time Spent With Patient Time with patient: 25 - 35 minutes
--- NOTE | 2018-04-20 13:39 | PC.NURSE ---
Day shift: Pt left unit for thoracentisis at approx 1330. Via WC.
--- NOTE | 2018-04-20 14:32 | PC.NURSE ---
Day shift: Back on unit at approx 1430. He c/o nausea and is venting his feeding tube. Does not want Zofran at this time. Will give the held Lasix now though. Call light in reach.
[2018-04-20 14:35] LABS: Body Fluid Red Blood Cells 3782 /uL; Body Fluid Tot Nucleated Cells 3543 /uL
[2018-04-20 14:37] LABS: Albumin Body Fluid 1.8 g/dL; Glucose Body Fluid 105 mg/dL; LDH Body Fluid 251 U/L; Total Protein Body Fluid 3.6 g/dL
[2018-04-20 14:46] LABS: Body Fluid Color YELLOW
[2018-04-20 14:47] LABS: Body Fluid Appearance CLOUDY; Body Fluid Clotted? NO CLOTS PRESENT
[2018-04-20 15:20] LABS: Eosinophils Body Fluid 0 %; Mononuclear WBC Body Fluid 15 %; Other Cells Body Fluid 0 %; Polynuclear WBC Body Fluid 85 %
[2018-04-20 16:40] LABS: Cholesterol Body Fluid < 50 mg/dL
--- NOTE | 2018-04-20 21:35 | PC.NURSE ---
PATIENT IS UP WITH SBA AND WALKER FOR A LOOP AROUND THE NURSE STATION,NO SHORTNESS OF BREATH VERY STEADY ON HIS FEET.WALKED ON ROOM AIR MAINTAINED SATS MID 90'S,BACK IN BED ON 1L NC
[2018-04-21] VITALS (11 sets, daily range): BP systolic 121–147; BP diastolic 64–81; PULSE 60–97; RESP 16–20; TEMP 36.4–37.2; O2SAT 91–100
--- NOTE | 2018-04-21 03:16 | PC.NURSE ---
NOC Note: Pt reported feeling discomfort to left side of neck and jaw, he believes that his eustachian tube on the left is plugged up. He states that the MD looked in his ears prior to admit and told him they were fine but he stated that he get these symptoms often and would the MD to look into it in the morning.
[2018-04-21] MEDS: LEVOTHYROXINE 112 MCG TABLET PO (05:48)
[2018-04-21] MEDS: ASPIRIN 81 MG TAB PO (09:17)
[2018-04-21] MEDS: AMIODARONE 200 MG TABLET PO (09:17)
[2018-04-21] MEDS: COMBIVENT 2 EACH INH ×2 (09:17→22:32)
[2018-04-21] MEDS: FERROUS SULFATE 325 MG TABLET PO (09:17)
[2018-04-21] MEDS: ALLOPURINOL 300 MG TABLET PO (09:17)
[2018-04-21] MEDS: LORATADINE 10 MG TABLET 5 MG PO (09:18)
--- NOTE | 2018-04-21 11:25 | PM.PN.1 ---
Subjective Interval history: See comments under assessment. Patient states that overall he is feeling better but still feels fatigued and tired Exam Vital Signs (past 8 hours): - 04/21/18 06:05 04/21/18 09:21 Temperature 97.6 F 98.6 F Pulse Rate 97 H 60 Respiratory Rate 16 20 Blood Pressure 140/76 H 143/81 H Pulse Oximetry 98 97 Oxygen Delivery Method Nasal Cannula Oxygen Flow Rate 1 Narrative Exam Narrative: General: at bedside patient is NAD HEENT: Normocephalic atraumatic extraocular movement was intact pupils are equal round reactive diagnosis visualized sclera were clear oropharynx was clear Neck is supple without thyromegaly bruits or jugular venous distention Lungs: Clear to auscultation Heart: Regular rhythm S1-S2 was normal renal disease rubs murmurs gallops are present Abdomen rotund benign bowel sounds active. Peg in place left side of the abdomen surrounding skin without any changes of inflammation Extremities full range of motion no clubbing edema or cyanosis Neurologic grossly physiologic Psychiatric awake alert oriented x3. Mood and affect were normal. Skin: There is a blotchy more ecchymotic type eruption over the right shoulder supraclavicular area. Area was completely flat there were no vesicles, bullae. Objective Labs Result Diagrams: 04/19/18 16:50 04/19/18 16:50 Labs: Laboratory Results - last 24 hr 04/20/18 04/20/18 11:00 Unknown PT 13.9 H INR 1.3 Fluid Color Yellow Fluid Appearance Cloudy Fluid RBC 3782 Fld Tot Nucleated Cell 3543 Fluid Polynuclear WBCs 85 Fluid Mononuclear WBCs 15 Fluid Eosinophils 0 Body Fluid Clot No clots present Fluid Glucose 105 Fluid Total Protein 3.6 Fluid Albumin 1.8 Fluid LDH 251 Fluid Cholesterol < 50 Assessment & Plan Plan: Assessment/Plan Narrative: 1. Streptococcus group B bacteremia 1/3 bottles No evidence of sepsis white count is mildly elevated T-max in the prior 24 hr is 99.0 heart rate normal sinus rhythm Respiratory rate stable 18-20. Blood pressure is stable with systolics in the 140s. No noted skin infections the area around his PEG tube site is without inflammatory change. He does have a rash of the right supraclavicular area/right shoulder. It is not vesicular pustular bullous but flat anymore ecchymotic then erythematous suggestive of cellulitis. He does complain of a sore throat review of throat was without erythema or exudation. He also complains of left-sided neck area discomfort. States that this is related to his eustachian tube. Will start patient on Rocephin, check echocardiogram, check urine. There is nothing of the skin to culture. Although this is not group A Will check throat culture 2. Right right pleural effusion Thoracentesis was done by ultrasound guidance on 04/20/2018. 1.1 L of clear fluid was removed. A small apical right basilar pneumothorax was seen on the immediate post thoracentesis chest x-ray. Follow-up chest x-rays did not reveal any increase of the pneumothorax or subsequent notation of the pneumothorax His pleural fluid analysis revealed 3782 RBCs 3543 WBCs with 85% polys 15% monos. The total protein was 3.6 LDH 251 cholesterol less than 50. Cytology is not available cultures are no growth to date 3. 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 History of hypothyroidism and hypertension continue home medications as tolerated 5. Congestive heart failure Lasix 40 mg IV q.12 hours . He is minus 1150 cc over past 24 hr. I will continue the Lasix q.12h check BMP and BNP in a.m. Disposition
[2018-04-21] MEDS: FUROSEMIDE 40 MG/4 ML VIAL IV ×2 (13:26→23:55)
[2018-04-21] MEDS: METOPROLOL 25 MG TABLET PO ×2 (13:26→20:32)
--- NOTE | 2018-04-21 13:57 | CM.DPC ---
DCP Cont: Patient continues on IV medication secondary to bacteremia. Visited with and patient, stated he would be here for a few more days. Discussed discharge plan, and mentioned senior care. Patient and feel that home health would be better, and they also are a tight community on [place]. P: DCP to continue to plan and assess, and determine if home health will be an option. Sparkle Farias RN/[facility]
[2018-04-21 14:36] LABS: Bacteria Urine None Seen; RBC Urine None Seen (0-5/HPF); WBC Urine None Seen (0-5/HPF)
[2018-04-21 14:39] LABS: Appearance Urine UA CLEAR; Bilirubin Urine UA NEGATIVE (NEGATIVE); Color Urine UA YELLOW; Glucose Urine UA NEGATIVE (Normal); Ketones Urine UA NEGATIVE (NEGATIVE); Leukocyte Esterase Urine UA NEGATIVE (NEGATIVE); Nitrite Urine UA Negative (Negative); Occult Blood Urine UA NEGATIVE (Negative); Protein Urine UA NEGATIVE (Negative); Specific Gravity Urine UA <=1.005 (1.000-1.035); Urobilinogen Urine UA 0.2 E.U./dL (0.2)
[2018-04-21] MEDS: CEFTRIAXONE 2 GM/50 ML FROZ.PIGGY IV (14:52)
[2018-04-21 15:02] LABS: Culture Indicated Urine Cult Not Indicated; Urine Comments Microscopic Normal
[2018-04-22] VITALS (12 sets, daily range): BP systolic 91–151; BP diastolic 48–81; PULSE 62–77; RESP 14–18; TEMP 36.2–37.1; O2SAT 88–100
--- NOTE | 2018-04-22 | DI.ECHO.S_ITS ---
[facility]---------+ [facility] +---------+ : : [address] : : : : [id number] : : : : Phone: [phone] Echocardiogram Report + + :Name: RORY MARES Study Date: 04/22/2018 Height: 68 in : :[facility] Exam Location: IS Weight: 143 lb : : Gender: Male BSA: 1.8 m2 : :: 1935 Age: 82 yrs BP: 117/65 mmHg: :Reason For Study: BACTEREMIA : : Performed By: Leanne Kahn : :Referring: UNSPECIFIED : + + Interpretation Summary The left ventricle is normal in size. The ejection fraction is estimated to be 30-35%. There is moderate to severe global hypokinesis of the left ventricle. There is a mild dyssynchronous contraction pattern, consistent with a conduction abnormality. The right ventricle is mildly dilated. The right ventricular systolic function is normal. There is mild to moderate tricuspid regurgitation. The right ventricular systolic pressure is estimated at 35 mmHg assuming a right atrial pressure of 3 mm Hg. There is a small right-sided pleural effusion. No obvious valvular vegetation seen. if clinically suspect endocarditis, consider GERALDO. Procedure: A two-dimensional transthoracic echocardiogram with color flow and Doppler was performed. The study quality was technically adequate. There is no prior echocardiogram noted for this patient. The heart rate ranged between 65-70 bpm during the study. The patient was in normal sinus rhythm during the exam. The patient had a bundle branch block rhythm during the exam. Left Ventricle: There is mild concentric left ventricular hypertrophy. The left ventricle is normal in size. There is no thrombus. The ejection fraction is estimated to be 30-35%. There is moderate to severe global hypokinesis of the left ventricle. There is a mild dyssynchronous contraction pattern, consistent with a conduction abnormality. Diastolic function could not be accurately assessed due to unobtainable data. Right Ventricle: The right ventricle is mildly dilated. The right ventricular systolic function is normal. Atria: The left atrial size is normal. The right atrium is severely dilated. There is no Doppler evidence for an interatrial shunt. Mitral Valve: There is mild to moderate mitral annular calcification. The mitral valve chordae are thickened and/or calcified. The mitral valve leaflets appear mildly thickened, but open well. There is mild mitral regurgitation. Aortic Valve: The aortic valve is mildly calcified. The aortic valve opens well. There is no aortic valve stenosis. There is mild aortic regurgitation. Tricuspid Valve: Tricuspid leaflets are thickened. Chordae attached to the septal leaflets appears to be thickened. Do not appears to be typical obvious vegetation. There is mild to moderate tricuspid regurgitation. The right ventricular systolic pressure is estimated at 35 mmHg assuming a right atrial pressure of 3 mm Hg. Pulmonic Valve: The pulmonic valve is not well visualized. Great Vessels: The aortic root is normal size. The ascending aorta is normal in size. The aortic arch could not be visualized. The pulmonary is not well visualized. The IVC is of normal diameter and collapses greater than 50% with a sniff. This suggests a low right atrial pressure of 3 mm Hg. Pericardium/ Pleura There is no pericardial effusion. There is a small right-sided pleural effusion. MMode/2D Measurements & Calculations LVIDd: 4.8 cm LVOT diam: 1.9 cm LVIDs: 4.0 cm Ao root diam: 3.7 cm FS: 17.5 % asc Aorta Diam: 2.9 cm IVSd: 1.2 cm LVPWd: 1.1 cm LV garay. diameter/BSA (cm/m^2): 2.7 LV sys. diameter/BSA (cm/m^2): 2.2 LA A2 area: 14.3 cm2 RA long axis: 6.5 cm LA A4 area: 20.1 cm2 RA area: 27.4 cm2 LA length (vol): 6.2 cm RA vol: 97.2 ml LA vol: 39.5 ml RA : 54.9 ml/m2 LA vol index: 22.3 ml/m2 RVD1 (basal): 4.5 cm LVAd ap4: 29.0 cm2 TAPSE: 2.6 cm LVAs ap4: 25.4 cm2 LVLs ap4: 8.3 cm LVAd ap2: 28.9 cm2 LVLd ap2: 8.3 cm LVAs ap2: 21.0 cm2 LVLs ap2: 7.1 cm Doppler Measurements & Calculations Ao V2 max: 111.9 cm/sec LVOT Max Bobo: 87.2 cm/sec Ao V2 mean: 79.9 cm/sec LV V1 max P.0 mmHg Ao max P.0 mmHg LV V1 VTI: 13.7 cm Ao mean P.7 mmHg DANII(I,D): 2.2 cm2 Ao V2 VTI: 16.8 cm DANII(V,D): 2.1 cm2 sev ratio: 0.82 DANII indexed to BSA (cm^2/m^2): 1.2 Med Peak E' Bobo: 3.0 cm/sec TR max bobo: 282.1 cm/sec Lat Peak E' Bobo: 6.9 cm/sec TR max P.8 mmHg Reading Physician:PM
[2018-04-22 06:06] LABS: Add Manual Diff / Slide Review NO; Basophils Percent Auto 0.3 % (0-2); Eosinophils Percent Auto 0.5 % (2-4); Hematocrit 48.2 % (41-53); Hemoglobin 16.2 g/dL (13.5-17.5); Lymphocytes Percent Auto 6.1 % (25-40); Mean Corpuscular HGB Conc 33.7 % (30-36); Mean Corpuscular Hemoglobin 31.7 PG (26-34); Mean Corpuscular Volume 94.2 fL (80-100); Monocytes Percent Auto 12.8 % (3-14); Neutrophils Absolute Auto 6600 /uL (3000-5900); Neutrophils Percent Auto 80.3 % (50-75); Platelet Count 157 X10^3/uL (150-400); Red Blood Cell Count 5.12 X10^6/uL (4.5-5.9); Red Cell Distribution Width 15.6 % (11.6-14.8); White Blood Cell Count 8.3 X10^3/uL (4.5-11.0)
[2018-04-22] MEDS: LEVOTHYROXINE 112 MCG TABLET PO (06:09)
[2018-04-22 06:19] LABS: Alanine Aminotransferase 68 IU/L (21-72); Albumin 3.7 g/dL (3.5-5.0); Albumin Globulin Ratio 1.1 (1.0-2.8); Alkaline Phosphatase 98 U/L (38-126); Aspartate Aminotransferase 104 IU/L (17-59); BUN Creatinine Ratio 52.9 (6-22); Bilirubin Total 1.3 mg/dL (0.2-1.3); Blood Urea Nitrogen 37 mg/dL (9-20); Calcium 8.8 mg/dL (8.4-10.2); Chloride 86 mmol/L (98-107); Estimated Glomerular Filt Rate > 60.0 mL/min (>60); Globulin 3.3 g/dL (1.7-4.1); Glucose 93 mg/dL (80-110); HEMOLYSIS < 15 (0-50); Potassium 3.4 mmol/L (3.4-5.1); Sodium 133 mmol/L (137-145)
[2018-04-22 06:26] LABS: Carbon Dioxide 39 mmol/L (22-32)
[2018-04-22] MEDS: ALLOPURINOL 300 MG TABLET PO (09:18)
[2018-04-22] MEDS: FERROUS SULFATE 325 MG TABLET PO (09:18)
[2018-04-22] MEDS: LORATADINE 10 MG TABLET 5 MG PO (09:18)
[2018-04-22] MEDS: ASPIRIN 81 MG TAB PO (09:18)
[2018-04-22] MEDS: AMIODARONE 200 MG TABLET PO (09:18)
[2018-04-22] MEDS: COMBIVENT 2 EACH INH ×3 (09:19→20:15)
[2018-04-22] MEDS: BECLOMETHASONE 80 MCG INH 10.6 GM 2 PUFF INH ×3 (09:19→22:22)
--- NOTE | 2018-04-22 10:50 | CM.DPC ---
DCP Cont: Patient may be here for a few day. Patient and family wish to pursue home health. Went ahead and had hospitalist sign face to face, which would include nursing, P.T, O.T, Home Health bath aide. P: DCP to continue to plan and assess. May be using [facility], since patient lives on [place]. Will monitor progress. Sparkle Farias RN/D[employer] Color Tester
[2018-04-22] MEDS: CEFTRIAXONE 2 GM/50 ML FROZ.PIGGY IV (13:07)
[2018-04-22] MEDS: FUROSEMIDE 40 MG/4 ML VIAL IV ×2 (13:07→19:50)
--- NOTE | 2018-04-22 15:12 | PC.NURSE ---
nurse note right plantar foot and toes are red and warm to touch. rest of toes/fingers are cool to touch and purple/pink which is baseline for pt. Notified MD and he will continue to monitor.
--- NOTE | 2018-04-22 19:01 | P.PN_ITS ---
Subjective Interval history: Patient has no new complaints no new problems. He states that the area of his ear neck discomfort has improved. After patient was initially seen this morning I was asked by the nurse to evaluate his right foot. It had become more warm. He does have discoloration of his extremities with his hands having a bluish tint and this seemed to be chronic. There was no itching pain or discomfort of the of Exam Vital Signs (past 8 hours): - 04/22/18 14:20 04/22/18 16:31 Temperature 98.8 F 97.1 F L Pulse Rate 67 70 Respiratory Rate 18 16 Blood Pressure 117/65 138/80 H Pulse Oximetry 92 98 Oxygen Delivery Method Room Air Oxygen Flow Rate 98 Narrative Exam Narrative: General: at bedside patient is NAD HEENT: Normocephalic atraumatic extraocular movement was intact pupils are equal round reactive diagnosis visualized sclera were clear oropharynx was clear Neck is supple without thyromegaly bruits or jugular venous distention Lungs: Clear to auscultation Heart: Regular rhythm S1-S2 was normal renal disease rubs murmurs gallops are present Abdomen rotund benign bowel sounds active. Peg in place left side of the abdomen surrounding skin without any changes of inflammation Extremities full range of motion no clubbing edema or cyanosis Neurologic grossly physiologic Psychiatric awake alert oriented x3. Mood and affect were normal. Skin: There is a blotchy more ecchymotic type eruption over the right shoulder supraclavicular area. Area was completely flat there were no vesicles, bullae. Danilo with a somewhat bluish tint Plantar aspect of the feet bilaterally are slightly erythematous with that of the left plantar aspect be more ready erythematous and with increased warmth. Objective Labs Result Diagrams: 04/22/18 05:50 04/22/18 05:50 Labs: Laboratory Results - last 24 hr 04/22/18 04/22/18 05:50 05:50 WBC 8.3 RBC 5.12 Hgb 16.2 Hct 48.2 MCV 94.2 MCH 31.7 MCHC 33.7 RDW 15.6 H Plt Count 157 Neut % (Auto) 80.3 H Lymph % (Auto) 6.1 L [place] % (Auto) 12.8 Eos % (Auto) 0.5 L Baso % (Auto) 0.3 Neut # (Auto) 6600 H Sodium 133 L Potassium 3.4 Chloride 86 L Carbon Dioxide 39 H BUN 37 H Creatinine 0.70 Estimated GFR > 60.0 BUN/Creatinine Ratio 52.9 H Glucose 93 Calcium 8.8 Total Bilirubin 1.3 AST 104 H ALT 68 Alkaline Phosphatase 98 Total Protein 7.0 Albumin 3.7 Globulin 3.3 Albumin/Globulin Ratio 1.1 Assessment & Plan Plan: Assessment/Plan Narrative: 1. Streptococcus group B bacteremia / bottles It appears that this is secondary to his pleural fluid which is also growing Streptococcus group B. he is on Rocephin 2 g IV daily 2. Right pleural effusion The pleural fluid at the characteristics of exudate and the pleural fluid is now growing Streptococcus group B. as mentioned above he is on Rocephin 2 g IV daily. Last chest x-ray revealed only a small residual left pleural effusion. Will repeat chest x-ray in the a.m. to see if there has been any change. 3. 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 History of hypothyroidism and hypertension continue home medications as tolerated 5. Congestive heart failure Echocardiogram has been done and reveals that his ejection fraction is 30-35%. He therefore has LV systolic dysfunction Lasix 40 mg IV q.12 hours . I will continue the Lasix q.12h check BMP and BNP ans BMP in a.m. Disposition This will depend on his clinical course and completion of his IV antibiotic. This would seem likely by tomorrow with him being switched to oral antibiotics. This would be based upon the follow-up a candidate for switch therapy: (1) cough and shortness of breath are improving, (2) the patient has been afebrile ( temperature, <37.8?C) for at least 8 hours, (3) white blood cell count is normalizing, and (4) oral intake and gastrointestinal tract absorption are adequate.
[2018-04-22] MEDS: METOPROLOL 25 MG TABLET PO (19:50)
[2018-04-23] VITALS (10 sets, daily range): BP systolic 116–168; BP diastolic 72–95; PULSE 64–73; RESP 12–20; TEMP 36.5–37.1; O2SAT 92–100; BMI 22.4
--- NOTE | 2018-04-23 06:00 | DI.RAD.S_ITS ---
PROCEDURE: XR CHEST 2V INDICATIONS: Follow-up pleural effusion TECHNIQUE: 2 views of the chest were acquired. COMPARISON: [facility], CR, XR CHEST 2V, 04/19/2018, 16:37. [facility], US, US THORACENTESIS, 04/20/2018, 13:41. [facility], CR, XR CHEST 1V, 04/20/2018, 13:50. [facility], CR, XR CHEST 1V, 04/20/2018, 15:31. FINDINGS: Surgical changes and devices: None. Lungs and pleura: Moderate right pleural effusion remaining post thoracentesis, no pneumothorax. Right lower lobe atelectasis. Mediastinum: Mediastinal contours are normal. Heart size is normal. Calcified, tortuous aorta. Small residual Bones and chest wall: No suspicious bony abnormalities. Soft tissues appear unremarkable. IMPRESSION: Stable moderate right pleural effusion post thoracentesis. No delayed pneumothorax. Dictated by: Salbador Pinzon M.D. on 04/23/2018 at 8:16 Approved by: Salbador Pinzon M.D. on 04/23/2018 at 8:22
[2018-04-23] MEDS: LEVOTHYROXINE 112 MCG TABLET PO (06:04)
[2018-04-23 06:21] LABS: Add Manual Diff / Slide Review NO; Basophils Percent Auto 0.2 % (0-2); Hematocrit 44.7 % (41-53); Hemoglobin 15.3 g/dL (13.5-17.5); Lymphocytes Percent Auto 6.3 % (25-40); Mean Corpuscular HGB Conc 34.2 % (30-36); Mean Corpuscular Hemoglobin 31.9 PG (26-34); Mean Corpuscular Volume 93.4 fL (80-100); Monocytes Percent Auto 16.4 % (3-14); Neutrophils Absolute Auto 6300 /uL (3000-5900); Neutrophils Percent Auto 76.1 % (50-75); Platelet Count 163 X10^3/uL (150-400); Red Blood Cell Count 4.78 X10^6/uL (4.5-5.9); Red Cell Distribution Width 15.9 % (11.6-14.8); White Blood Cell Count 8.3 X10^3/uL (4.5-11.0)
[2018-04-23 06:27] LABS: BUN Creatinine Ratio 48.8 (6-22); Blood Urea Nitrogen 39 mg/dL (9-20); Calcium 8.5 mg/dL (8.4-10.2); Chloride 84 mmol/L (98-107); Estimated Glomerular Filt Rate > 60.0 mL/min (>60); Glucose 98 mg/dL (80-110); HEMOLYSIS < 15 (0-50); Potassium 3.1 mmol/L (3.4-5.1); Sodium 132 mmol/L (137-145)
[2018-04-23 06:39] LABS: Carbon Dioxide 41 mmol/L (22-32)
--- NOTE | 2018-04-23 06:53 | PC.NURSE ---
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 Spoke with Pt, he reports that he desats with sleep, he agrees to keep O2 off while awake.
[2018-04-23] MEDS: COMBIVENT 2 EACH INH (08:23)
--- NOTE | 2018-04-23 08:24 | RT ---
Patient states he only takes the Combivent 1 p twice a day at specific times. Wishes to have this medication ONLY at 0900 and 1800. Wishes to have Qvar 2p ONLY at 1300 and 2200. This is his home routine. Will speak with doctor about changing frequency in MAR on patient's home Combivent.
[2018-04-23] MEDS: AMIODARONE 200 MG TABLET PO (08:52)
[2018-04-23] MEDS: FERROUS SULFATE 325 MG TABLET PO (08:52)
[2018-04-23] MEDS: METOPROLOL 25 MG TABLET PO (08:52)
[2018-04-23] MEDS: LORATADINE 10 MG TABLET 5 MG PO (08:52)
[2018-04-23] MEDS: ALLOPURINOL 300 MG TABLET PO (08:52)
[2018-04-23] MEDS: ASPIRIN 81 MG TAB PO (08:52)
[2018-04-23] MEDS: POTASSIUM CHLORIDE 20 MEQ/15 ML UDC 40 MEQ PO (11:10)
[2018-04-23] MEDS: BECLOMETHASONE 80 MCG INH 10.6 GM 2 PUFF INH (12:42)
[2018-04-23] MEDS: CEFTRIAXONE 2 GM/50 ML FROZ.PIGGY IV (12:51)
--- NOTE | 2018-04-23 15:26 | PC.NURSE ---
day shift pt denied pain this shift. around 1100, c/o of not feeling great. sitting on edge of bed, took BP and it was 66/45 with HR of 61. Told pt to lay back in bed and took BP again, 109/68 HR 61. Pt states he felt better laying down. Told pt to alert staff if feeling returned. Notified colton SANDOVAL held for AM dose. hourly rounding provided, call light within reach.
--- NOTE | 2018-04-23 17:32 | PM.PN.1 ---
Subjective Date Patient Seen: 04/23/18 Time Patient Seen: 17:32 Interval history: Patient's shortness of breath has improved. He had an episode earlier today of hypotension. Patient describes episodes of hyper followed by hypotension. This is a chronic problem for him. He does have some discoloration of his hands and toes. His feet are warm. Exam Vital Signs (past 8 hours): - 04/23/18 12:42 04/23/18 13:54 04/23/18 15:40 Temperature 98.0 F 98.7 F Pulse Rate 64 69 70 Respiratory Rate 12 15 18 Blood Pressure 116/72 152/83 H Pulse Oximetry 96 95 96 Oxygen Delivery Method Room Air Oxygen Flow Rate 0 Narrative Exam Narrative: HEENT: Normocephalic atraumatic, oropharynx is clear, Lungs: Decreased breath sounds coarse bilaterally Cardiac exam: Nl S1S2 Abdomen: Soft nontender nondistended, peg tube in place Extremity: No edema toes are bluish but warm. Pulses are palpable. Neuro exam: Nonfocal Neuro exam: Objective Labs Result Diagrams: 04/23/18 05:56 04/23/18 05:56 Labs: Laboratory Results - last 24 hr 04/23/18 04/23/18 05:56 05:56 WBC 8.3 RBC 4.78 Hgb 15.3 Hct 44.7 MCV 93.4 MCH 31.9 MCHC 34.2 RDW 15.9 H Plt Count 163 Neut % (Auto) 76.1 H Lymph % (Auto) 6.3 L [place] % (Auto) 16.4 H Eos % (Auto) 1.0 L Baso % (Auto) 0.2 Neut # (Auto) 6300 H Sodium 132 L Potassium 3.1 L Chloride 84 L Carbon Dioxide 41 H* BUN 39 H Creatinine 0.80 Estimated GFR > 60.0 BUN/Creatinine Ratio 48.8 H Glucose 98 Calcium 8.5 B-Natriuretic Peptide 868.0 H Assessment & Plan (1) Congestive heart failure: Problem details: Continue Lasix will decrease from IV to oral. Will replace potassium Current visit: No Status: None (2) Group B streptococcal bacteriuria: Problem details: Continue antibiotics was switched to oral antibiotics at discharge Current visit: Yes Status: Acute
[2018-04-23] MEDS: COMBIVENT INHALER 2 EACH INH (17:54)
[2018-04-23] MEDS: METOPROLOL 12.5 MG TABLET PO (20:46)
[2018-04-24] VITALS (7 sets, daily range): BP systolic 112–147; BP diastolic 65–84; PULSE 66–74; RESP 16; TEMP 36.4–37.2; O2SAT 93–97
[2018-04-24] MEDS: BECLOMETHASONE 80 MCG INH 10.6 GM 2 PUFF INH ×2 (00:30→13:19)
[2018-04-24] MEDS: LEVOTHYROXINE 112 MCG TABLET PO (05:54)
[2018-04-24 06:27] LABS: BUN Creatinine Ratio 51.4 (6-22); Blood Urea Nitrogen 36 mg/dL (9-20); Calcium 8.6 mg/dL (8.4-10.2); Chloride 86 mmol/L (98-107); Estimated Glomerular Filt Rate > 60.0 mL/min (>60); Glucose 86 mg/dL (80-110); HEMOLYSIS < 15 (0-50); Potassium 3.6 mmol/L (3.4-5.1); Sodium 130 mmol/L (137-145)
[2018-04-24 06:33] LABS: Carbon Dioxide 38 mmol/L (22-32)
[2018-04-24] MEDS: POTASSIUM CHLORIDE 20 MEQ/15 ML UDC PO (08:49)
[2018-04-24] MEDS: LORATADINE 10 MG TABLET 5 MG PO (08:50)
[2018-04-24] MEDS: AMIODARONE 200 MG TABLET PO (08:51)
[2018-04-24] MEDS: FERROUS SULFATE 325 MG TABLET PO (08:51)
[2018-04-24] MEDS: METOPROLOL 12.5 MG TABLET PO (08:51)
[2018-04-24] MEDS: FUROSEMIDE 20 MG TABLET PO (08:51)
[2018-04-24] MEDS: ALLOPURINOL 300 MG TABLET PO (08:51)
[2018-04-24] MEDS: ASPIRIN 81 MG TAB PO (08:51)
[2018-04-24] MEDS: COMBIVENT INHALER 2 EACH INH ×2 (09:16→21:44)
--- NOTE | 2018-04-24 11:30 | CM.DPC ---
DCP: continued: case received, EMR reviewed and spoke with Dr. Calle. She confirms pt is ready for d/c and with [facility]. Noted that DCP Vannessa had obtained a Face/Face from hospitalist Dr. Marcelo on 04/22. Order obtained with discipline specifics clarified. Met then with pt and his Nichole. Face sheet indicates they live in [place] but they are currently residing on [place]. HH choice list: discussed: only one choice for [facility]: [facility]. Referral is called to [place]yana/[place]. She confirms acceptance but with all Dejuan starts on Mondays only: will see pt 04/30. RN/PT/OT (BARREL LAT[employer] OPERATOR [employer]SIDE is not available at this agency. Pt's confirms that this is fine, she helps her with this already.) Tatyana will call pt's spouse on her cell in the next few minutes to discuss their services and obtain correct address and directions on location of their home. [facility] [facility] [place]. RN coordinator Lea states she will followup on the priority board as the [facility] is currently not available. P: home today as note: [facility]
[2018-04-24] MEDS: CEFTRIAXONE 2 GM/50 ML FROZ.PIGGY IV (12:47)
--- NOTE | 2018-04-26 18:18 | P.DS_ITS ---
History of Present Illness Date Patient Seen: 04/24/18 Chief complaint: SENT FOR THOROCENTESIS Narrative: [age] years of age male presents to the emergency room complaint of of shortness of breath. Symptom onset in the past few days with worsening. Patient notes having similar symptoms in the past when he had pleural effusion that responded to the thoracentesis procedure. Patient normally is on Lasix at home once a day. He might increase the dose to twice daily when he seems to be retaining fluid. Patient with a history of non- Hodgkin's lymphoma that was diagnosed 12 years ago. 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 Patient has required a PEG tube to maintain adequate nutrition and fluids over the past 12 years. On prior thoracentesis of the fluid was analyzed and there was no malignant cells found. In the ER patient has a BNP of 2000. The pleural effusion is likely related to congestive heart failure. The pleural effusion is reported as a moderate amount of right pleural fluid effusion. Tentative plan to have patient undergo thoracentesis tomorrow with Interventional Radiology. Discharge Providers Date of admission: 04/19/18 18:43 Consults: 04/24/18 10:57 Consult to Home Health Routine Comment: Reason For Exam: shortness of breath Discharge provider: Hiral Calle MD Summary Discharge Diagnosis: Pleural Effusion Hypertension Orthostatic Hypotension CHF Gout Group B Strep/Pleural fluid/blood/bacteremia Hypothyroidism History of Non Hodgkin's Lymphoma Hospital Course: patient was admitted to the hospital for a thoracentesis. This was successfully accomplished and fluid was removed. The pleural fluid and blood grew group B strep. Patient was treated with antibiotics. He continued to have some pulmonary edema and recieved lasix plus his usual blood pressure medications. Patient developed significant orthostatic hypotension. The lasix was discontinued and the metropolol was decreased. the following day his supine and standing blood pressure was improved and he was deemed appropriate for discharge home. Status at Discharge Cognitive/behavioral status at discharge: at baseline Functional status at discharge: independent ambulation Overall status at discharge: patient is back to baseline Time Spent with Patient Less than 30 minutes Exam Vital Signs (past 8 hours): - 04/24/18 05:55 04/24/18 08:38 04/24/18 09:17 Temperature 98.1 F 97.8 F Pulse Rate 69 70 69 Respiratory Rate 16 16 16 Blood Pressure 147/84 H 126/73 H Pulse Oximetry 94 95 Oxygen Delivery Method Room Air Oxygen Flow Rate 0 Narrative Exam Narrative: Lungs: Decreased breath sounds CV: RRR nl Sl S2 26 SANTA Abd: soft/ non tender non distended Ext: no edema Objective Labs Result Diagrams: 04/23/18 05:56 04/24/18 05:42 Labs: Laboratory Results - last 24 hr 04/24/18 05:42 Sodium 130 L Potassium 3.6 Chloride 86 L Carbon Dioxide 38 H BUN 36 H Creatinine 0.70 Estimated GFR > 60.0 BUN/Creatinine Ratio 51.4 H Glucose 86 Calcium 8.6 Discharge Plan Discharge Plan Patient Disposition: Home Health Service Discharge comment: Patient is ready for discharge Provider Discharge Instructions Activity: as tolerated Discharge Data Attending Provider: Franko Back Admit Date/Time: 04/19/18 18:43 Discharges patient from system. Discharge Date/Time: 04/24/18 23:34
--- NOTE | 2018-04-27 13:28 | CM.DPNOTE ---
Received VM from [facility] in [facility]. Requesting pt's admission and DC date. They were informaed by the home health agency that pt had a recent hospitalization. Faxed Aime's facesheet and included his admission and DC date on the fax cover sheet. [place] F# [phone] P# [phone] CORY
== END 2018-04-24 23:34 | disposition home health service (06) | DRG 193 ==
LOC: ED 18:26 → AC 18:44
PROVIDERS: Internal Medicine; Admitting Provider Internal Medicine; Emergency Provider Emergency Medicine; Family Provider Family Medicine; Visit Provider Internal Medicine
DX: J15.3 Pneumonia due to streptococcus, group B (principal); I50.23 Acute on chronic systolic (congestive) heart failure; J91.8 Pleural effusion in other conditions classified elsewhere; C85.90 Non-Hodgkin lymphoma, unspecified, unspecified site; R78.81 Bacteremia; E46 Unspecified protein-calorie malnutrition; J95.811 Postprocedural pneumothorax; K22.2 Esophageal obstruction; Y84.2 Radiological procedure and radiotherapy as the cause of abnormal reaction of the patient, or of later complication, without mention of misadventure at the time of the procedure; E03.9 Hypothyroidism, unspecified; I11.0 Hypertensive heart disease with heart failure; Z93.1 Gastrostomy status
CPT/HCPCS: 32555; 36415; 36591; 71045; 71046; 71260; 74177; 80048; 80053; 81001; 82042; 82945; 83605; 83615; 83880; 84145; 84157; 84484; 85025; 85610; 87040; 87070; 87075; 87077; 87147; 87150; 87186; 87205; 89051; 93005; 93010; 93306; 94640; 94760; 94762; 99283; 99285; J0696; J1940; Q9967

== ENCOUNTER 2018-05-01 16:04 | Inpatient (IN) | payer OTHER, SELFPAY ==
[2018-04-23 15:32] VITALS: BMI 22.4
[2018-05-01] VITALS (8 sets, daily range): BP systolic 120–161; BP diastolic 81–98; PULSE 60–92; RESP 16–24; TEMP 36.1–36.8; O2SAT 90–96; BMI 22.3
--- NOTE | 2018-05-01 16:22 | PC.NURSE ---
pt in restroom.
--- NOTE | 2018-05-01 16:32 | DI.RAD.S_ITS ---
PROCEDURE: XR CHEST 2V INDICATIONS: History of pleural effusions not with shortness of breath TECHNIQUE: 2 views of the chest were acquired. COMPARISON: [facility], CR, XR CHEST 2V, 04/23/2018, 5:46. FINDINGS: Surgical changes and devices: None. Lungs and pleura: There is a notable increase in amount of right-sided pleural effusion with complete atelectasis of right middle and lower lobes and subsegmental atelectasis in right upper lobe. No significant left-sided pleural effusion is seen. No pneumothorax. Mediastinum: Mediastinal contours are normal. Heart size is enlarged. Bones and chest wall: No suspicious bony abnormalities. Soft tissues appear unremarkable. IMPRESSION: Moderate right pleural effusion with atelectasis of right middle and lower lobes, significantly increased compared to previous study. No gross pneumothorax. Dictated by: Maciej Black M.D. on 05/01/2018 at 16:46 Approved by: Maciej Black M.D. on 05/01/2018 at 16:47
--- NOTE | 2018-05-01 18:29 | ED_ITS ---
HPI - SOB/Dyspnea General Chief Complaint: Upper Respiratory Symptoms Stated Complaint: STATES LUNGS ARE FILLING UP AGAIN Time Seen by Provider: 05/01/18 17:47 Source: patient Mode of arrival: ambulatory Limitations: no limitations History of Present Illness Patient is an 80-year-old male who presents with increasing shortness of breath worsening over the last 1-2 days. He was seen and admitted here last week with group B strep bacteremia. He had a pleural effusion at that time as well. Over last few days he has had increasing shortness of breath. No fever no chest pain he has otherwise been feeling well. MD Complaint: shortness of breath Related Data Home Medications Medication Instructions Recorded Confirmed allopurinol 300 mg FEEDING TUBE DAILY 04/19/18 05/01/18 amiodarone 200 mg FEEDING TUBE DAILY 04/19/18 05/01/18 aspirin 81 mg FEEDING TUBE BEDTIME 04/19/18 05/01/18 beclomethasone dipropionate [Qvar 2 puff INHALATION Q12H 04/19/18 05/01/18 RediHaler] ferrous sulfate 325 mg FEEDING TUBE DAILY 04/19/18 05/01/18 ipratropium-albuterol [Combivent 1 puff INHALATION BID 04/19/18 05/01/18 Respimat] levothyroxine 112 mcg FEEDING TUBE DAILY 04/19/18 05/01/18 loratadine 5 mg FEEDING TUBE DAILY 04/19/18 05/01/18 ondansetron HCl [Zofran] 4 mg FEEDING TUBE Q4H PRN 04/19/18 05/01/18 azelastine 2 spray INTRANASAL Q12H 05/01/18 05/01/18 cholecalciferol (vitamin D3) 400 unit FEEDING TUBE DAILY 05/01/18 05/01/18 [Vitamin D3] montelukast 10 mg FEEDING TUBE QPM 05/01/18 05/01/18 sennosides [senna] 5 - 10 ml PO BID 05/01/18 05/01/18 sennosides-docusate sodium 1 tab FEEDING TUBE DAILY PRN 05/01/18 05/01/18 [Senokot-S] Previous Rx's Medication Instructions Recorded levofloxacin 500 mg PO DAILY #7 tab 04/24/18 Allergies Allergy/AdvReac Type Severity Reaction Status Date / Time Sulfa (Sulfonamide Allergy Severe INABILITY Unverified 12/27/17 12:10 Antibiotics) TO BREATH [SULFA (SULFONAMIDE ANTIBIOTICS)] tetanus and diphtheria Allergy Severe MEMORY Unverified 12/27/17 12:10 toxoids LOSS, [TETANUS & DIPHTHERIA SWEATING TOXOIDS] Tetracyclines [TETRACYCLINES] Allergy Severe INABILITY Unverified 12/27/17 12:10 TO BREATH codeine [CODEINE] Allergy Intermediate NAUSEA Unverified 12/27/17 12:10 morphine [MORPHINE] Allergy Intermediate NAUSEA Unverified 12/27/17 12:10 Penicillins [PENICILLINS] Allergy Intermediate RASH Unverified 12/27/17 12:10 ibuprofen Allergy Unknown Blurry Verified 05/01/18 17:24 Vision spironolactone Allergy Unknown Verified 05/01/18 17:24 tiotropium Allergy Dizziness Verified 05/01/18 17:24 lisinopril AdvReac Cough Verified 05/01/18 17:24 Review of Systems Review of Systems GENERAL: Denies chills, fatigue, malaise, fever, sweats, travel HEENT: Denies sinus pain, ear pain, sore throat, difficulty swallowing, neck pain RESPIRATORY: See HPI CARDIOVASCULAR: Denies chest pain, palpitations, orthopnea, edema GASTROINTESTINAL: Denies nausea, vomiting, abdominal pain, diarrhea, constipation, melena. : Denies dysuria, frequency, incontinence, hematuria, urinary retention, flank pain. MUSCULOSKELETAL: Denies weakness, joint pain, or bony pain SKIN: No rash, no erythema, no pruritus NEUROLOGIC: Denies weakness, dizziness, headache, numbness, change in speech, confusion PSYCHIATRIC: No concerning psychosocial issues. 12 point review of systems is negative except for those stated above and HPI All systems reviewed & are unremarkable except as noted in HPI and below PFSH Medical History Atrial fibrillation (Acute) CHF (congestive heart failure) (Acute) Hypothyroid (Acute) Non-Hodgkin lymphoma (Acute) Social History household members: spouse Smoking Status: Never smoker Exam Initial Vital Signs Initial Vital Signs: Vital Signs Temperature 97.2 F L 05/01/18 16:27 Pulse Rate 60 05/01/18 16:27 Respiratory Rate 18 05/01/18 16:27 Blood Pressure 120/81 H 05/01/18 16:27 Pulse Oximetry 95 05/01/18 16:27 GENERAL: Elderly male in no acute distress HEENT: Head atraumatic,EOMI, pupils reactive, CARDIOVASCULAR: Regular rate and rhythm without murmurs, rubs or gallops. RESPIRATORY: Decreased breath sounds the right long clear on the left side no labored breathing or respiratory distress ABDOMEN: Soft, nontender. Normoactive bowel sounds all 4 quadrants. No guarding or rebound. EXTREMITIES: Normal range of motion, no clubbing or edema. Neurovascularly intact NEUROLOGICAL: Alert and oriented x4.Normal gait and speech. Cranial nerves II through XII grossly intact. SKIN: Warm, dry, no laceration, no petechiae, no rashes or lesions. Course Orders Ordered: ED Orders 05/01/18 18:08 B Type Natriuretic Peptide Stat Basic Metabolic Panel Stat Partial Thromboplastin Time Stat 05/02/18 01:46 Consult to Respiratory Therapy Evaluate & Treat 05/02/18 19:01 US thoracentesis Routine Vital Signs - 8 hr 05/01/18 19:16 05/01/18 19:28 05/01/18 20:10 Temperature 98.3 F Pulse Rate 87 92 H 81 Respiratory Rate 22 20 20 Blood Pressure 161/96 H 160/98 H Blood Pressure [Left Arm] 161/96 H Pulse Oximetry 95 94 90 L 05/01/18 22:41 05/01/18 23:35 Temperature 96.9 F L Pulse Rate 65 Respiratory Rate 16 Blood Pressure 144/84 H Blood Pressure [Left Arm] Pulse Oximetry 94 96 MDM - SOB/Dyspnea Medical Records Attestation: I reviewed the patient's medical records. Lab Data Attestation: I reviewed the patient's lab results. Result diagrams: 05/01/18 Unknown 05/01/18 18:08 Lab Results 05/01/18 05/01/18 05/01/18 Range/Units 18:08 18:08 18:08 WBC (4.5-11.0) X10^3/uL RBC (4.5-5.9) X10^6/uL Hgb (13.5-17.5) g/dL Hct (41-53) % MCV (80-100) fL MCH (26-34) PG MCHC (30-36) % RDW (11.6-14.8) % Plt Count (150-400) X10^3/uL Neut % (Auto) (50-75) % Lymph % (Auto) (25-40) % [place] % (Auto) (3-14) % Eos % (Auto) (2-4) % Baso % (Auto) (0-2) % Neut # (Auto) (3269-4801) /uL PT (10.1-12.7) SECONDS INR (0.9-1.3) APTT 29 (26.4-36.2) SECONDS Sodium 121 L (137-145) mmol/L Potassium 5.4 H D (3.4-5.1) mmol/L Chloride 85 L (98-107) mmol/L Carbon Dioxide 31 (22-32) mmol/L BUN 33 H (9-20) mg/dL Creatinine 0.70 (0.66-1.25) mg/dL Estimated GFR > 60.0 (>60) mL/min BUN/Creatinine Ratio 47.1 H (6-22) Glucose 88 (80-110) mg/dL Calcium 9.0 (8.4-10.2) mg/dL B-Natriuretic Peptide 2440.0 H (<100) 05/01/18 05/01/18 Range/Units Unknown Unknown WBC 8.6 (4.5-11.0) X10^3/uL RBC 4.55 (4.5-5.9) X10^6/uL Hgb 14.8 (13.5-17.5) g/dL Hct 42.1 (41-53) % MCV 92.5 (80-100) fL MCH 32.5 (26-34) PG MCHC 35.1 (30-36) % RDW 15.4 H (11.6-14.8) % Plt Count 296 (150-400) X10^3/uL Neut % (Auto) 81.2 H (50-75) % Lymph % (Auto) 5.8 L (25-40) % [place] % (Auto) 11.2 (3-14) % Eos % (Auto) 1.3 L (2-4) % Baso % (Auto) 0.5 (0-2) % Neut # (Auto) 7000 H (5331-3704) /uL PT 13.4 H (10.1-12.7) SECONDS INR 1.2 (0.9-1.3) APTT (26.4-36.2) SECONDS Sodium (137-145) mmol/L Potassium (3.4-5.1) mmol/L Chloride (98-107) mmol/L Carbon Dioxide (22-32) mmol/L BUN (9-20) mg/dL Creatinine (0.66-1.25) mg/dL Estimated GFR (>60) mL/min BUN/Creatinine Ratio (6-22) Glucose (80-110) mg/dL Calcium (8.4-10.2) mg/dL B-Natriuretic Peptide (<100) Imaging Data Chest x-ray: Radiologist's impression: PROCEDURE: XR CHEST 2V INDICATIONS: History of pleural effusions not with shortness of breath TECHNIQUE: 2 views of the chest were acquired. COMPARISON: [facility], CR, XR CHEST 2V, 04/23/2018, 5:46. FINDINGS: Surgical changes and devices: None. Lungs and pleura: There is a notable increase in amount of right-sided pleural effusion with complete atelectasis of right middle and lower lobes and subsegmental atelectasis in right upper lobe. No significant left-sided pleural effusion is seen. No pneumothorax. Mediastinum: Mediastinal contours are normal. Heart size is enlarged. Bones and chest wall: No suspicious bony abnormalities. Soft tissues appear unremarkable. IMPRESSION: Moderate right pleural effusion with atelectasis of right middle and lower lobes, significantly increased compared to previous study. No gross pneumothorax. Dictated by: Maciej Black M.D. on 05/01/2018 at 16:46 ECG Data Interpretation: MDM Narrative Medical decision making narrative: Patient has recurrent left-sided pleural effusion. He is requiring oxygen. No leukocytosis or fever to suggest infection. Patient will be placed in observation for thoracentesis in the morning. Dr. Powell in ED to evaluate patient. Accepts to observation. Discharge Plan Departure Patient Disposition: Admitted as Observation Clinical Impression: Pleural effusion Discharge Date/Time: 05/01/18 20:05 Interventions: ED Discharge Assessment Last Done: 05/01/18 19:28 Admit Date/Time: 05/01/18 19:05 Admit Provider: Madison Powell
[2018-05-01 19:32] LABS: PTT Partial Thromboplastin Tim 29 SECONDS (26.4-36.2)
[2018-05-01 19:36] LABS: BUN Creatinine Ratio 47.1 (6-22); Blood Urea Nitrogen 33 mg/dL (9-20); Carbon Dioxide 31 mmol/L (22-32); Chloride 85 mmol/L (98-107); Estimated Glomerular Filt Rate > 60.0 mL/min (>60); Glucose 88 mg/dL (80-110); HEMOLYSIS < 15 (0-50); Sodium 121 mmol/L (137-145)
[2018-05-01 19:55] LABS: Potassium 5.4 mmol/L (3.4-5.1)
[2018-05-01 20:04] LABS: INR 1.2 (0.9-1.3); Prothrombin Time 13.4 SECONDS (10.1-12.7)
[2018-05-01 20:05] LABS: Add Manual Diff / Slide Review NO; Basophils Percent Auto 0.5 % (0-2); Eosinophils Percent Auto 1.3 % (2-4); Hematocrit 42.1 % (41-53); Hemoglobin 14.8 g/dL (13.5-17.5); Lymphocytes Percent Auto 5.8 % (25-40); Mean Corpuscular HGB Conc 35.1 % (30-36); Mean Corpuscular Hemoglobin 32.5 PG (26-34); Mean Corpuscular Volume 92.5 fL (80-100); Monocytes Percent Auto 11.2 % (3-14); Neutrophils Absolute Auto 7000 /uL (3000-5900); Neutrophils Percent Auto 81.2 % (50-75); Platelet Count 296 X10^3/uL (150-400); Red Blood Cell Count 4.55 X10^6/uL (4.5-5.9); Red Cell Distribution Width 15.4 % (11.6-14.8); White Blood Cell Count 8.6 X10^3/uL (4.5-11.0)
--- NOTE | 2018-05-01 22:34 | PC.NURSE ---
PATIENT RESTING QUIETLY IN BED,NASAL CANNULA AT 2L SATS 94%. PATIENTS /CAREGIVER ROOMING IN WITH HIM. PATIENT DENIES PAIN, WARM BLANKETS PLACED. GIVES PATIENT HIS TUBE FEEDS WHEN NEEDED.STANDING BEDSIDE TO USE URINAL,DENIES ANY NEEDS AT THIS TIME.
[2018-05-02] VITALS (10 sets, daily range): BP systolic 90–156; BP diastolic 52–88; PULSE 65–78; RESP 12–20; TEMP 36.2–36.8; O2SAT 90–97
--- NOTE | 2018-05-02 | DI.RAD.S_ITS ---
PROCEDURE: XR CHEST 1V INDICATIONS: POST THORACENTESIS TECHNIQUE: One view of the chest was acquired. COMPARISON: [facility], CR, XR CHEST 2V, 05/01/2018, 16:14. [facility], CR, XR CHEST 2V, 04/23/2018, 5:46. [facility], CR, XR CHEST 1V, 04/20/2018, 15:31. FINDINGS: Surgical changes and devices: None. Lungs and pleura: There has been an excellent reduction in the amount of right pleural effusion with only a small residual subpulmonic effusion on the right remaining. No pneumothorax. Mediastinum: Mediastinal contours appear normal. Heart size is normal. Bones and chest wall: No suspicious bony lesions. Overlying soft tissues appear unremarkable. IMPRESSION: No pneumothorax after right sided thoracentesis. Very small residual subpulmonic right effusion remains, as expected. Dictated by: Willie Power M.D. on 05/02/2018 at 9:46 Approved by: Willie Power M.D. on 05/02/2018 at 9:52
--- NOTE | 2018-05-02 09:23 | P.HP_ITS ---
History of Present Illness Date Patient Seen: 05/01/18 Time Patient Seen: 18:17 Chief complaint: STATES LUNGS ARE FILLING UP AGAIN Narrative: This very pleasant gentleman was recently in the hospital discharge but a week ago has come back with filling up of his lungs and difficulty breathing as well as leg swelling He was in the hospital a week ago for similar problem with pleural effusion had fluid removed by the radiology At the time of discharge he was then asked not to take his diuretics and metoprolol He has an underlying cardiomyopathy likely secondary to medications chemotherapy for his non-Hodgkin's lymphoma years ago He normally lives in [place] and comes up to this place during summer 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 [place] 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 and now has a PEG tube feed Does not complain of any chest pain cough phlegm or wheezing Patient History Medical History Atrial fibrillation (Acute) CHF (congestive heart failure) (Acute) Hypothyroid (Acute) Non-Hodgkin lymphoma (Acute) Family & Social History Family History: Reviewed 05/02/18 by Madison Powell MD Social History: household members spouse Prior Living Arrangements House Safety & Behavioral: Feels Safe in Current Yes Environment Been Physically Hurt or No Threatened By a Person Suicidal Ideation Description None Suicide Plan Description No Plan Tobacco & Substance use: Tobacco type cigarettes Smoking Status Never smoker alcohol intake frequency 0-2 drinks per day Substance Use Type does not use Meds Home Medications Medication Instructions Recorded Confirmed Type allopurinol 300 mg FEEDING TUBE DAILY 04/19/18 05/01/18 History amiodarone 200 mg FEEDING TUBE DAILY 04/19/18 05/01/18 History aspirin 81 mg FEEDING TUBE BEDTIME 04/19/18 05/01/18 History beclomethasone dipropionate [Qvar 2 puff INHALATION Q12H 04/19/18 05/01/18 History RediHaler] ferrous sulfate 325 mg FEEDING TUBE DAILY 04/19/18 05/01/18 History ipratropium-albuterol [Combivent 1 puff INHALATION BID 04/19/18 05/01/18 History Respimat] levothyroxine 112 mcg FEEDING TUBE DAILY 04/19/18 05/01/18 History loratadine 5 mg FEEDING TUBE DAILY 04/19/18 05/01/18 History ondansetron HCl [Zofran] 4 mg FEEDING TUBE Q4H PRN 04/19/18 05/01/18 History levofloxacin 500 mg PO DAILY #7 tab 04/24/18 05/01/18 Rx azelastine 2 spray INTRANASAL Q12H 05/01/18 05/01/18 History cholecalciferol (vitamin D3) 400 unit FEEDING TUBE DAILY 05/01/18 05/01/18 History [Vitamin D3] montelukast 10 mg FEEDING TUBE QPM 05/01/18 05/01/18 History sennosides [senna] 5 - 10 ml PO BID 05/01/18 05/01/18 History sennosides-docusate sodium 1 tab FEEDING TUBE DAILY PRN 05/01/18 05/01/18 History [Senokot-S] Allergies Allergy/AdvReac Type Severity Reaction Status Date / Time Sulfa (Sulfonamide Allergy Severe INABILITY Unverified 12/27/17 12:10 Antibiotics) TO BREATH [SULFA (SULFONAMIDE ANTIBIOTICS)] tetanus and diphtheria Allergy Severe MEMORY Unverified 12/27/17 12:10 toxoids LOSS, [TETANUS & DIPHTHERIA SWEATING TOXOIDS] Tetracyclines [TETRACYCLINES] Allergy Severe INABILITY Unverified 12/27/17 12:10 TO BREATH codeine [CODEINE] Allergy Intermediate NAUSEA Unverified 12/27/17 12:10 morphine [MORPHINE] Allergy Intermediate NAUSEA Unverified 12/27/17 12:10 Penicillins [PENICILLINS] Allergy Intermediate RASH Unverified 12/27/17 12:10 ibuprofen Allergy Unknown Blurry Verified 05/01/18 17:24 Vision spironolactone Allergy Unknown Verified 05/01/18 17:24 tiotropium Allergy Dizziness Verified 05/01/18 17:24 lisinopril AdvReac Cough Verified 05/01/18 17:24 Review of Systems Review of Systems All systems reviewed & are unremarkable except as noted in HPI and below Exam Vital Signs (past 8 hours): - 05/02/18 03:50 05/02/18 07:26 05/02/18 09:00 Temperature 97.2 F L Pulse Rate 68 69 Respiratory Rate 14 18 Blood Pressure 156/87 H 150/88 H Pulse Oximetry 92 90 L 94 Oxygen Delivery Method Nasal Cannula Oxygen Flow Rate 2 Const General: cooperative Nutritional Appearance: average body habitus Orientation: alert, awake and oriented x3 HENMT Head: normal to inspection Ears: hearing grossly normal bilaterally Nose: external nose normal Face and sinus: normal facial exam Mouth: oral mucosae normal Eyes General: appearance normal, both eyes and all related structures Eyelids: eyelids normal Conjunctivae: conjunctivae normal Sclera: sclerae normal Pupils: PERRL EOM: EOM intact bilaterally Resp Effort & Inspection: able to speak in complete sentences Auscultation: diminished lung sounds on the right Cardio Rhythm: abnormal rhythm irregularly irregular Heart Sounds: S1 normal and S2 normal GI Inspection: other (PEG tube in place ) Back/Spine/Pelvis Back: normal to inspection Neuro General: alert, awake and oriented x3 Cranial Nerves: CN's II-XI intact bilaterally Cognition: normal cognition Speech: speech normal Motor: muscle tone normal throughout Objective Labs Result Diagrams: 05/01/18 Unknown 05/01/18 18:08 Labs: Laboratory Results - last 24 hr 05/01/18 05/01/18 05/01/18 18:08 18:08 18:08 WBC RBC Hgb Hct MCV MCH MCHC RDW Plt Count Neut % (Auto) Lymph % (Auto) [place] % (Auto) Eos % (Auto) Baso % (Auto) Neut # (Auto) PT INR APTT 29 Sodium 121 L Potassium 5.4 H D Chloride 85 L Carbon Dioxide 31 BUN 33 H Creatinine 0.70 Estimated GFR > 60.0 BUN/Creatinine Ratio 47.1 H Glucose 88 Calcium 9.0 B-Natriuretic Peptide 2440.0 H 05/01/18 05/01/18 Unknown Unknown WBC 8.6 RBC 4.55 Hgb 14.8 Hct 42.1 MCV 92.5 MCH 32.5 MCHC 35.1 RDW 15.4 H Plt Count 296 Neut % (Auto) 81.2 H Lymph % (Auto) 5.8 L [place] % (Auto) 11.2 Eos % (Auto) 1.3 L Baso % (Auto) 0.5 Neut # (Auto) 7000 H PT 13.4 H INR 1.2 APTT Sodium Potassium Chloride Carbon Dioxide BUN Creatinine Estimated GFR BUN/Creatinine Ratio Glucose Calcium B-Natriuretic Peptide Assessment & Plan Plan: Assessment/Plan Narrative: 1. Recurrent pleural effusion will need thoracentesis 2. Congestive heart failure underlying cardiomyopathy secondary to chemotherapy will reinstate home medications and monitor especially diuretics 3. Hyponatremia congestive state to have ileus the diuretics and follow the sodium level fluid restriction 4. Hyperkalemia will monitor levels use Kayexalate for now Time Spent With Patient Time with patient: Greater than 35 minutes Quality VTE Deep Vein Thrombosis/Pulmonary Embolism Present on Admission: No
[2018-05-02] MEDS: FUROSEMIDE 20 MG/2 ML VIAL IV (10:43)
--- NOTE | 2018-05-02 11:08 | RT ---
PT. WAS NOT GIVEN HIS MORNING MEDS SINCE HE HAD THE THORACENTESIS. THE PHYSICIAN DOES NOT WANT THE PT. TO DEEP BREATH FOR THE NEXT SEVERAL HOURS UNTIL IT CLOSES AND HEALS. WILL ASSES THIS EVENING AND SEE IF HE IS ABLE TO TAKE HIS MEDICATION AT THAT TIME.
[2018-05-02 11:47] LABS: LDH Body Fluid 328 U/L
--- NOTE | 2018-05-02 12:09 | CM.DANOTE ---
DCP: Case received, EMR reviewed and met with patient. Introduced self and role. DCP template completed with information currently available. Patient is an 82 year old male who admitted yesterday evening to the care of the hospitalist team. PCP: Dr. Slaughter. Payer: confirmed: Medicare Advantage Patient carries diagnosis of Pleural Effusion. Patient is to be getting Thorcentesis today. Lives in [place] in fall, winter and spring, and resides on [facility] in the summer. Was recently hospitalized with same symptoms before. Lives with who is supportive. Patient is normally independent as well. P: DCP will continue to plan and assess. Goal is for patient to return home. Sparkle Farias RN/manager product
[2018-05-02] MEDS: PANTOPRAZOLE 40 MG PACKET 20 MG PO (12:37)
[2018-05-02] MEDS: AMIODARONE 200 MG TABLET PO (12:38)
[2018-05-02] MEDS: LORATADINE 10 MG TABLET 5 MG PO (12:38)
[2018-05-02] MEDS: ALLOPURINOL 300 MG TABLET PO (12:39)
[2018-05-02] MEDS: CHOLECALCIFEROL (VITAMIN D3) 400 UNIT TABLET PO (12:39)
[2018-05-02] MEDS: levoFLOXacin 500 MG TABLET PO (12:39)
[2018-05-02] MEDS: FERROUS SULFATE 325 MG TABLET PO (12:40)
[2018-05-02] MEDS: SODIUM POLYSTYRENE SULFON/SORB 15 GM/60 ML CUP PO (14:40)
--- NOTE | 2018-05-02 14:53 | PC.NURSE ---
Am shift Pt is cooperative and polite with care, NPO permanetly d/t radiation 12 years ago Peg tube for nurtrition, bolus feedings are held for thoracocentesis later this AM. is involved in care, Pts are eager to d/c home when able. l
--- NOTE | 2018-05-02 15:10 | PM.PN.1 ---
Subjective Date Patient Seen: 05/02/18 Time Patient Seen: 12:10 Interval history: Admitted following an worsening of shortness of breath or leg edema was recently in the hospital pleural effusion that was at removed by paracentesis that patient has severe cardiomyopathy from his underlying and chemotherapy for her lymphoma many years ago In the previous discharge to the diuretics were discontinued as well as the metoprolol He had a thoracentesis today and feels much improved now Blood work revealed a sodium of 121 and hyperkalemia of 5.4 diuretics has been reinstated and will continue to monitor electrolytes Exam Vital Signs (past 8 hours): - 05/02/18 07:26 05/02/18 09:00 Pulse Rate 69 Respiratory Rate 18 Blood Pressure 150/88 H Pulse Oximetry 90 L 94 Oxygen Delivery Method Nasal Cannula Oxygen Flow Rate 2 Const General: cooperative and frail appearing Nutritional Appearance: thin Orientation: alert, awake and oriented x3 HENMT Head: normal to inspection Ears: hearing grossly normal bilaterally Nose: external nose normal Face and sinus: normal facial exam Eyes General: appearance normal, both eyes and all related structures Eyelids: eyelids normal Sclera: sclerae normal Pupils: PERRL EOM: EOM intact bilaterally Neck Neck: normal visual inspection Resp Effort & Inspection: normal respiratory effort Auscultation: clear to auscultation bilaterally (anteriorly) Cardio Rate: regular rate Rhythm: regular rhythm Heart Sounds: S1 normal and S2 normal GI Inspection: normal to inspection Palpation: soft Back/Spine/Pelvis Back: normal to inspection and No back tenderness Skin General: no rashes or lesions noted Neuro General: alert, awake and oriented x3 Cranial Nerves: CN's II-XI intact bilaterally Cognition: normal cognition Speech: speech normal Gait: normal gait Motor: muscle tone normal throughout Sensory Exam: no sensory deficits noted Extrem Left lower extremity: edema (wilver 2+) Psych Mood: congruent mood Affect: normal affect Attitude: cooperative Thought Process: normal and other Thought Content: normal Judgment: judgment good Objective Labs Result Diagrams: 05/01/18 Unknown 05/01/18 18:08 Labs: Laboratory Results - last 24 hr 05/01/18 05/01/18 05/01/18 18:08 18:08 18:08 WBC RBC Hgb Hct MCV MCH MCHC RDW Plt Count Neut % (Auto) Lymph % (Auto) [place] % (Auto) Eos % (Auto) Baso % (Auto) Neut # (Auto) PT INR APTT 29 Sodium 121 L Potassium 5.4 H D Chloride 85 L Carbon Dioxide 31 BUN 33 H Creatinine 0.70 Estimated GFR > 60.0 BUN/Creatinine Ratio 47.1 H Glucose 88 Calcium 9.0 B-Natriuretic Peptide 2440.0 H Fluid LDH 05/01/18 05/01/18 05/02/18 Unknown Unknown 11:03 WBC 8.6 RBC 4.55 Hgb 14.8 Hct 42.1 MCV 92.5 MCH 32.5 MCHC 35.1 RDW 15.4 H Plt Count 296 Neut % (Auto) 81.2 H Lymph % (Auto) 5.8 L [place] % (Auto) 11.2 Eos % (Auto) 1.3 L Baso % (Auto) 0.5 Neut # (Auto) 7000 H PT 13.4 H INR 1.2 APTT Sodium Potassium Chloride Carbon Dioxide BUN Creatinine Estimated GFR BUN/Creatinine Ratio Glucose Calcium B-Natriuretic Peptide Fluid LDH 328 Assessment & Plan Plan: Assessment/Plan Narrative: 1. Recurrent pleural effusion Now post thoracentesis 2. Congestive heart failure underlying cardiomyopathy secondary to chemotherapy will reinstate home medications and monitor especially diuretics 3. Hyponatremia congestive state resume the diuretics and follow the sodium level fluid restriction 4. Hyperkalemia will monitor levels use Kayexalate for now Time Spent With Patient Time with patient: 25 - 35 minutes Quality VTE Deep Vein Thrombosis/Pulmonary Embolism Present on Admission: No
[2018-05-02] MEDS: MONTELUKAST 10 MG TABLET PO (17:17)
[2018-05-02] MEDS: ACETAMINOPHEN 325 MG TABLET 650 MG PO (17:17)
[2018-05-02] MEDS: ALBUTEROL/IPRATROPIUM MDI 1 PUFF INH (18:25)
--- NOTE | 2018-05-02 19:01 | DI.US.S_ITS ---
PROCEDURE: US THORACENTESIS INDICATIONS: right pleural effusion TECHNIQUE: The indications, alternatives, benefits, risks, and complications of the procedure were explained to the patient. Written informed consent was obtained and placed in the chart. The chest was examined sonographically, and an appropriate site was chosen for thoracentesis. The skin was prepared and draped in the usual sterile fashion, and 1% lidocaine was infiltrated from the skin down through the pleural surface. A 19-gauge catheter-covered needle was then introduced into the pleural space, the catheter was advanced and the needle was withdrawn, and thereafter pleural fluid was aspirated. The catheter was then removed and a dressing was applied. COMPARISON: [facility], THORACENTESIS, 04/20/2018, 13:41. FINDINGS: Access site: Right posterior inferior hemithorax. Needle: One-Step centesis catheter with introducer needle. Fluid volume and description: 2000 cc of serous clear fluid Fluid sent for diagnostic testing: Obtained in a 50 cc aliquots available for analysis if this is requested. Medications: 1% lidocaine for local anaesthesia. Complications: None; post-procedural chest radiograph is pending to assess for pneumothorax. IMPRESSION: Successful ultrasound-guided thoracentesis. Dictated by: Willie Power M.D. on 05/02/2018 at 11:43 Approved by: Willie Power M.D. on 05/02/2018 at 12:12
--- NOTE | 2018-05-02 19:01 | PC.NURSE ---
PM Shift Patient reports minimum discomfort and correlates the discomfort to his Morales catheter, not to procedural pain. Denies SOB. , Nichole, at bedside and very active in patient's ADL's and care. asks to administer PEG tube feedings and medications. I observed administer Tylenol and kayexalate at start of shift. Patient able to assist with repositioning in bed (IND in bed). Asks to use BSC for BM's. Patient reports feeling so much better post thoracentesis.
[2018-05-02] MEDS: BECLOMETHASONE 80 MCG INH 10.6 GM 2 PUFF INH (20:41)
[2018-05-02] MEDS: ASPIRIN 81 MG TAB PO (21:32)
[2018-05-02] MEDS: DOCUSATE 100 MG CAPSULE PO (21:32)
[2018-05-03] VITALS (10 sets, daily range): BP systolic 96–138; BP diastolic 50–82; PULSE 62–72; RESP 12–20; TEMP 36.1–36.6; O2SAT 93–96; BMI 21.4
[2018-05-03 06:03] LABS: Add Manual Diff / Slide Review NO; Basophils Percent Auto 0.3 % (0-2); Eosinophils Percent Auto 1.1 % (2-4); Hematocrit 42.6 % (41-53); Hemoglobin 14.5 g/dL (13.5-17.5); Mean Corpuscular Hemoglobin 31.7 PG (26-34); Neutrophils Absolute Auto 7000 /uL (3000-5900); Neutrophils Percent Auto 82.6 % (50-75); Platelet Count 303 X10^3/uL (150-400); Red Blood Cell Count 4.58 X10^6/uL (4.5-5.9); Red Cell Distribution Width 15.2 % (11.6-14.8); White Blood Cell Count 8.4 X10^3/uL (4.5-11.0)
[2018-05-03 06:09] LABS: BUN Creatinine Ratio 48.6 (6-22); Blood Urea Nitrogen 34 mg/dL (9-20); Calcium 8.3 mg/dL (8.4-10.2); Carbon Dioxide 34 mmol/L (22-32); Chloride 87 mmol/L (98-107); Estimated Glomerular Filt Rate > 60.0 mL/min (>60); Glucose 86 mg/dL (80-110); HEMOLYSIS < 15 (0-50); Potassium 4.3 mmol/L (3.4-5.1); Sodium 124 mmol/L (137-145)
[2018-05-03] MEDS: LEVOTHYROXINE 112 MCG TABLET PO (06:25)
--- NOTE | 2018-05-03 06:52 | PC.NURSE ---
Predatory Animal Exterminator- Uneventful overnight, pt's will give levothyroxine med crush into PEG tube with fiction writer supervision. Pt and his Nichole handle bolus PEG tube feedings of Peptamen 1.5. Pt refused scheduled Tylenol and wanted to hold from receiving scheduled dose of Protonix until clarification from Physician. Morales output approx 300mls overnight. Pt otherwise strict NPO. No BM overnight, stated had a small BM 05/02 morning. Right side on back of thoracentesis site covered with Band-aid, no respiratory issues overnight. Pt states feeling better. AE diminished with fine crackle to RLL and diminished with slight coarseness to LLL.
[2018-05-03] MEDS: AMIODARONE 200 MG TABLET PO (09:04)
[2018-05-03] MEDS: ALLOPURINOL 300 MG TABLET PO (09:04)
[2018-05-03] MEDS: CHOLECALCIFEROL (VITAMIN D3) 400 UNIT TABLET PO (09:04)
[2018-05-03] MEDS: FERROUS SULFATE 325 MG TABLET PO (09:04)
[2018-05-03] MEDS: levoFLOXacin 500 MG TABLET PO (09:04)
[2018-05-03] MEDS: LORATADINE 10 MG TABLET 5 MG PO (09:04)
[2018-05-03] MEDS: SODIUM CHLORIDE 0.9% FLUSH 10 ML IV ×2 (09:05→21:10)
[2018-05-03] MEDS: DOCUSATE 100 MG CAPSULE PO ×2 (09:10→21:10)
[2018-05-03] MEDS: ALBUTEROL/IPRATROPIUM MDI 1 PUFF INH ×2 (09:20→18:26)
--- NOTE | 2018-05-03 14:12 | PC.NURSE ---
Am shift note Pt is A/o x3, involved in care and administers medication via peg tube. Observed feeding at flash at start of shift. Denies pain, Spo2 94-97% RA. Fine crackles and dim lungs. Using light for needs.
[2018-05-03] MEDS: BECLOMETHASONE 80 MCG INH 10.6 GM 2 PUFF INH (14:17)
[2018-05-03] MEDS: PANTOPRAZOLE 40 MG VIAL 20 MG IV (14:56)
[2018-05-03] MEDS: FUROSEMIDE 40 MG/4 ML VIAL IV (15:00)
--- NOTE | 2018-05-03 15:38 | CM.DPC ---
DCP: continued: case received, EMR reviewed. READMIT: noted. Pt was here 04/19 through 04/24 with a d/c to [place] with plan for [facility] to follow. Pt here again with CHF/cardiomyopathy related to chemotherapy and need for thoracentesis. Checked in with [facility] who noted that they had not been able to see pt yet as is [place] program is based in [place] (pt's and spouse's primary residence) and they had not been able to secure the authorization. P: check in with pt tomorrow and follow prn. Discussion with Dr. Loera indicates that pt plans to return to [facility] and connect with his providers there.
[2018-05-03] MEDS: MONTELUKAST 10 MG TABLET PO (17:19)
--- NOTE | 2018-05-03 19:21 | P.PN_ITS ---
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 LYMPHOMA Exam Vital Signs (past 8 hours): - 05/03/18 14:00 05/03/18 14:24 05/03/18 15:15 Temperature 97.4 F L 97.3 F L Pulse Rate 72 68 71 Respiratory Rate 18 12 20 Blood Pressure 124/69 H 96/56 L Pulse Oximetry 95 96 96 05/03/18 18:39 Temperature Pulse Rate 62 Respiratory Rate 15 Blood Pressure Pulse Oximetry 93 Oxygen Delivery Method Room Air Oxygen Flow Rate 0 Const General: cooperative, healthy appearing and comfortable Nutritional Appearance: thin HENMT Head: normal to inspection, normocephalic and atraumatic Ears: hearing grossly normal bilaterally Nose: external nose normal Face and sinus: normal facial exam Eyes General: appearance normal, both eyes and all related structures Eyelids: eyelids normal Conjunctivae: conjunctivae normal Sclera: sclerae normal Pupils: PERRL EOM: EOM intact bilaterally Neck Neck: normal visual inspection Thyroid: thyroid normal Resp Effort & Inspection: normal respiratory effort Auscultation: clear to auscultation bilaterally Cardio Rate: regular rate Heart Sounds: S1 normal and S2 normal GI Inspection: normal to inspection Palpation: soft Back/Spine/Pelvis Back: normal to inspection and No back tenderness Skin General: no rashes or lesions noted Neuro General: alert, awake and oriented x3 Cranial Nerves: CN's II-XI intact bilaterally Speech: speech normal Extrem Left lower extremity: edema (GUCCI PITTING) Psych Mood: congruent mood Affect: normal affect Attitude: cooperative Thought Process: normal Thought Content: normal Judgment: judgment good Objective Labs Result Diagrams: 05/03/18 05:39 05/03/18 05:39 Labs: Laboratory Results - last 24 hr 05/03/18 05/03/18 05:39 05:39 WBC 8.4 RBC 4.58 Hgb 14.5 Hct 42.6 MCV 93.0 MCH 31.7 MCHC 34.0 RDW 15.2 H Plt Count 303 Neut % (Auto) 82.6 H Lymph % (Auto) 5.0 L [place] % (Auto) 11.0 Eos % (Auto) 1.1 L Baso % (Auto) 0.3 Neut # (Auto) 7000 H Sodium 124 L Potassium 4.3 Chloride 87 L Carbon Dioxide 34 H BUN 34 H Creatinine 0.70 Estimated GFR > 60.0 BUN/Creatinine Ratio 48.6 H Glucose 86 Calcium 8.3 L Assessment & Plan Plan: Assessment/Plan Narrative: 1.Recurrent Pleural Effusion cause undetermined 2. CHF Acute on Chronic Systolic HF PEG tube feeding d/t Esophageal stricture Hx Lymphoma Time Spent With Patient Time with patient: 25 - 35 minutes Quality VTE Deep Vein Thrombosis/Pulmonary Embolism Present on Admission: No
[2018-05-03] MEDS: ASPIRIN 81 MG TAB PO (21:10)
[2018-05-04] VITALS (11 sets, daily range): BP systolic 113–143; BP diastolic 65–89; PULSE 62–81; RESP 14–20; TEMP 35.8–36.8; O2SAT 92–97
--- NOTE | 2018-05-04 | DI.RAD.S_ITS ---
PROCEDURE: XR CHEST 1V INDICATIONS: FOLLOW UP FOR PLEURAL EFFUSION TECHNIQUE: One view of the chest was acquired. COMPARISON: [facility], CR, XR CHEST 1V, 05/02/2018, 9:17. [facility], CR, XR CHEST 2V, 05/01/2018, 16:14. [facility], CR, XR CHEST 2V, 04/23/2018, 5:46. FINDINGS: Surgical changes and devices: None. Lungs and pleura: No left-sided pleural effusions or pneumothorax bilaterally. The prior right pleural effusion has diminished from several days ago, and only a small to moderate subpulmonic right effusion remains but this has increased from the plain film obtained just after thoracentesis 01/30. Lungs are unchanged with mild alveolar infiltration in the right lower lobe. Mediastinum: Mediastinal contours appear normal. Heart size is normal. Bones and chest wall: No suspicious bony lesions. Overlying soft tissues appear unremarkable. IMPRESSION: Small interval increase in subpulmonic right effusion after thoracentesis procedure and followup post-thoracentesis plain film. Small to moderate subpulmonic effusion is present without pneumothorax. Dictated by: Willie Power M.D. on 05/04/2018 at 8:41 Approved by: Willie Power M.D. on 05/04/2018 at 8:44
--- NOTE | 2018-05-04 | DI.CT.S_ITS ---
PROCEDURE: CT CHEST WO CON INDICATIONS: Recurrent right-sided pleural effusion TECHNIQUE: Noncontrast 5 mm thick sections acquired from the pulmonary apices to the posterior costophrenic angles. 7 mm thick coronal and sagittal MIP reformats were then acquired. For radiation dose reduction, the following was used: automated exposure control, adjustment of mA and/or kV according to patient size. COMPARISON: , CR, XR CHEST 1V, 05/04/2018, 5:33. , CT, CT CHEST ABD PEL W CON, 04/19/2018, 18:46. FINDINGS: Image quality: Excellent. Lungs and pleura: There is a moderate sized right-sided pleural effusion with associated compressive atelectasis of the right upper, middle, and lower lobes. No discrete mass lesion identified with noncontrast evaluation. No definite pleural thickening. There is atelectasis also demonstrated medially in the left lower lobe. Scarring is demonstrated in the lung apices anteriorly. The trachea and central airways appear patent. Mediastinum: Heart size is enlarged. No pericardial effusion. No mediastinal adenopathy by size criteria. There is enlargement of the pulmonary arteries suggestive of pulmonary trauma attention. The main pulmonary artery measures up to approximately 3.9 cm in diameter. Esophagus is normal in caliber. No hiatal hernia. Bones and chest wall: No suspicious bony lesions. No vertebral body compression fractures. No axillary or supraclavicular adenopathy by size criteria. Thyroid gland demonstrates no discrete nodules. Abdomen: Visualized upper abdomen demonstrates a percutaneous gastrostomy tube extending into the stomach. There are gallstones within the visualized gallbladder are IMPRESSION: 1. Moderate-sized right pleural effusion with associated compressive atelectasis redemonstrated. No discrete mass lesion identified on noncontrast evaluation. 2. Cardiomegaly. 3. Enlargement of the pulmonary arteries suggestive of pulmonary arterial hypertension. 4. Cholelithiasis. Dictated by: Roger Mariano M.D. on 05/04/2018 at 22:17 Approved by: Roger Mariano M.D. on 05/04/2018 at 22:21
[2018-05-04] MEDS: LEVOTHYROXINE 112 MCG TABLET PO (05:49)
[2018-05-04] MEDS: PANTOPRAZOLE 40 MG VIAL 20 MG IV (05:50)
[2018-05-04] MEDS: SODIUM CHLORIDE 0.9% FLUSH 10 ML IV ×3 (05:52→18:22)
[2018-05-04] MEDS: ALBUTEROL/IPRATROPIUM MDI 1 PUFF INH ×2 (09:00→18:29)
[2018-05-04] MEDS: ALLOPURINOL 300 MG TABLET PO (09:01)
[2018-05-04] MEDS: FERROUS SULFATE 325 MG TABLET PO (09:01)
[2018-05-04] MEDS: DOCUSATE 100 MG CAPSULE PO ×2 (09:01→18:22)
[2018-05-04] MEDS: LORATADINE 10 MG TABLET 5 MG PO (09:01)
[2018-05-04] MEDS: AMIODARONE 200 MG TABLET PO (09:02)
[2018-05-04] MEDS: FUROSEMIDE 40 MG TABLET PO (09:02)
[2018-05-04] MEDS: levoFLOXacin 500 MG TABLET PO (09:02)
[2018-05-04 11:46] LABS: BUN Creatinine Ratio 41.3 (6-22); Blood Urea Nitrogen 33 mg/dL (9-20); Calcium 8.3 mg/dL (8.4-10.2); Carbon Dioxide 37 mmol/L (22-32); Chloride 87 mmol/L (98-107); Estimated Glomerular Filt Rate > 60.0 mL/min (>60); Glucose 108 mg/dL (80-110); HEMOLYSIS < 15 (0-50); Potassium 3.9 mmol/L (3.4-5.1); Sodium 126 mmol/L (137-145)
[2018-05-04] MEDS: CHOLECALCIFEROL (VITAMIN D3) 400 UNIT TABLET PO (13:02)
[2018-05-04] MEDS: BECLOMETHASONE 80 MCG INH 10.6 GM 2 PUFF INH ×2 (13:44→22:06)
--- NOTE | 2018-05-04 17:10 | PC.NURSE ---
Pt resting quietly in bed with eyes closed without signs of distress or discomfort. Rouses easily to voice. Spouse and daughters present in pt's room. Pt admits to slight dyspnea with conversation. Room air 96%. Coarse breath sounds to left posterior bai, diminished right posterior bai. Occasional harsh, dry cough. Pt does report this is occasionally productive. NPO. All meds/feeds via PEG tube. Declines tylenol as states having no pain.
[2018-05-04] MEDS: MONTELUKAST 10 MG TABLET PO (18:20)
[2018-05-04] MEDS: ASPIRIN 81 MG TAB PO (18:22)
--- NOTE | 2018-05-04 19:41 | PM.PN.1 ---
Subjective Date Patient Seen: 05/04/18 Time Patient Seen: 10:15 Interval history: This an 83-year-old male with complex medical problems presenting with acute on chronic hypoxic respiratory failure secondary to recurrent right-sided pleural effusion requiring frequent thoracocentesis. Patient with underlying malignancy ( non-Hodgkin's lymphoma), chemo/radiation therapy induced cardiomyopathy, chronic dysphagia requiring PEG tube placement. Overall, reports feeling better with less dyspnea on exertion. Exam Vital Signs (past 8 hours): - 05/04/18 12:00 05/04/18 16:32 05/04/18 17:13 Temperature 96.4 F L 97.4 F L Pulse Rate 65 62 Respiratory Rate 16 20 Blood Pressure 113/65 114/68 Pulse Oximetry 93 95 96 05/04/18 18:30 Temperature Pulse Rate 81 Respiratory Rate 16 Blood Pressure Pulse Oximetry 97 Oxygen Delivery Method Room Air Oxygen Flow Rate 0 Narrative Exam Narrative: Constitutional: Well-developed ill-appearing and CT head male in mild distress he remains essentially bedridden HEENT: Unremarkable Neck: Supple, no jugular venous distention, but no bruits on auscultation, without Pulmonary: He has decreased breath sounds over the right lower lobe Cardiovascular: Regular rhythm rate, no murmur Gastrointestinal: Abdomen is soft nontender nondistended bowel sounds present no discernible organomegaly Extremities: No peripheral edema Skin: Warm, well perfused, no skin rashes, no lesions Objective Labs Result Diagrams: 05/03/18 05:39 05/04/18 11:10 Labs: Laboratory Results - last 24 hr 05/04/18 11:10 Sodium 126 L Potassium 3.9 Chloride 87 L Carbon Dioxide 37 H BUN 33 H Creatinine 0.80 Estimated GFR > 60.0 BUN/Creatinine Ratio 41.3 H Glucose 108 Calcium 8.3 L Assessment & Plan Plan: Assessment/Plan Narrative: 1. Recurrent right-sided pleural effusion: Probably multifactorial, requiring frequent paracentesis Continue to treat underlying medical problems, Lissette there is therapy 2. History of non-Hodgkin's lymphoma with previous chemo/radiation therapy : with concerns for possible malignant causes behind right side at the recount pleural effusion. Continue management as above. Request a chest CT. 3. Chemoradiation induced cardiomyopathy: echocardiogram during this admission with LVEF of 30-35%, moderate to severe global hypokinesis of the left ventricle, mild to moderate tricuspid regurgitation, mild dilatation of the right ventricle but his normal systolic function. Mild pulmonary hypertension at 65 mm of mercury. Continue current management as above 4. Deconditioning/debility, multifactorial/secomndarey to above, continue to treat underlying medical problems Quality VTE Deep Vein Thrombosis/Pulmonary Embolism Present on Admission: No
--- NOTE | 2018-05-04 19:43 | PC.NURSE ---
Pt was given all hs meds with 1800 feed after discussion with pt's spouse. Daughter administers water flush as well as feed via tube. Pt tolerates this well. Conforms with routine established at home.
--- NOTE | 2018-05-04 20:38 | CM.MNRNOTE ---
To CT scanner via wheelchair as ordered. Returned to room and requests be allowed to rest and then ambulated @ 2100 or after.
[2018-05-05] VITALS (8 sets, daily range): BP systolic 104–149; BP diastolic 55–75; PULSE 62–68; RESP 14–18; TEMP 36.4–36.8; O2SAT 93–96
[2018-05-05] MEDS: LEVOTHYROXINE 112 MCG TABLET PO (06:03)
[2018-05-05] MEDS: PANTOPRAZOLE 40 MG VIAL 20 MG IV (06:04)
[2018-05-05] MEDS: SODIUM CHLORIDE 0.9% FLUSH 10 ML IV ×2 (06:06→08:53)
[2018-05-05] MEDS: ENOXAPARIN 40 MG/0.4 ML SYRINGE SUBCUT (08:51)
[2018-05-05] MEDS: LORATADINE 10 MG TABLET 5 MG PO (08:52)
[2018-05-05] MEDS: FERROUS SULFATE 325 MG TABLET PO (08:52)
[2018-05-05] MEDS: AMIODARONE 200 MG TABLET PO (08:52)
[2018-05-05] MEDS: DOCUSATE 100 MG CAPSULE PO (08:52)
[2018-05-05] MEDS: FUROSEMIDE 40 MG TABLET PO (08:52)
[2018-05-05] MEDS: CHOLECALCIFEROL (VITAMIN D3) 400 UNIT TABLET PO (08:52)
[2018-05-05] MEDS: ALLOPURINOL 300 MG TABLET PO (08:52)
[2018-05-05] MEDS: ALBUTEROL/IPRATROPIUM MDI 1 PUFF INH (09:04)
[2018-05-05] MEDS: BECLOMETHASONE 80 MCG INH 10.6 GM 2 PUFF INH (12:47)
--- NOTE | 2018-05-05 13:23 | PM.DS.1 ---
History of Present Illness Date Patient Seen: 05/05/18 Time Patient Seen: 11:30 Chief complaint: STATES LUNGS ARE FILLING UP AGAIN Narrative: This an 83-year-old male with complex medical problems presenting with acute on chronic hypoxic respiratory failure secondary to recurrent right-sided pleural effusion requiring frequent thoracocentesis. Patient with underlying malignancy ( non-Hodgkin's lymphoma), chemo/radiation therapy induced cardiomyopathy, chronic dysphagia requiring PEG tube placement. Overall, reports feeling better with less dyspnea on exertion, stated that he is ready to go home.. Discharge Providers Date of admission: 05/01/18 19:05 Consults: 05/02/18 01:46 Consult to Respiratory Therapy Evaluate & Treat Comment: Physician Instructions: Evaluate and treat Discharge provider: Mara Reyna MD Summary Discharge Diagnosis: 1. Recurrent right-sided pleural effusion: Probably multifactorial, requiring frequent paracentesis,with slow re-acummulation of fluid predominantly on the R chest. Exact reason behind predominant fluid accumulation on the right chest remains unclear. Interval chest CT with no obvious signs of malignancy, including pleura, was detected. Patient advised to see his reel blade bender furnace tender upon arrival back home. If rate of fluid accumulation increases, might benefit from consideration of PleurX catheter placement. In interim, continue current diuretic therapy with oral Lasix. 2. History of non-Hodgkin's lymphoma with previous chemo/radiation therapy : with concerns for possible malignant causes behind right side at the recount pleural effusion though not confrimed by inteval chest CT. Patient to resume outpatient follow-up with his coffee machine technician/oncologist. 3. Congestive heart failure, acute on chronic, systolic and diastolic with pulmonary hypertension: Probably multifactorial, caused by toxicity of chemo/radiation therapy. Cannot rule out superimposed/coexisting coronary artery disease. Interval echocardiogram during this admission with LVEF of 30-35%, moderate to severe global hypokinesis of the left ventricle, mild to moderate tricuspid regurgitation, mild dilatation of the right ventricle but with normal systolic function. Mild pulmonary hypertension at 35 mm of mercury. Might benefit from interventional cardiology consult to address possible ischemic causes behing his cardiomyopathy. Continue current management as above 4. Deconditioning/debility, multifactorial, secondarey to above, continue to treat underlying medical problems Hospital Course: T his is an 82-year-old male with complex medical problems presenting with acute on chronic hypoxic respiratory failure secondary to CHF exacerbation, re-accumulation of pleuritic fluid around the right chest with resultant compression atelectasis. During hospital stay required therapeutic thoracocentesis x2 along with IV/p.o. diuretics, breathing treatments, empiric antibiotic therapy, symptomatic and supportive care. Interval echocardiogram with evidence of biventricular failure,LVEF of 30-35%, moderate to severe global hypokinesis of the left ventricle, mild to moderate tricuspid regurgitation, mild dilatation of the right ventricle but with normal systolic function. Mild pulmonary hypertension at 35 mm of mercury. Exact reason behind the predominant accumulation of fluid on the right chest remains clear. Interval chest CT with no obvious signs of malignancy involving lungs, mediastinum, pleura. Patient was released home per his request in stable condition. Outpatient follow with primary care physician and specialists involved in his care was recommended. Status at Discharge Functional status at discharge: uses cane/walker Overall status at discharge: patient is progressing back to baseline Time Spent with Patient Greater than 30 minutes Exam Vital Signs (past 8 hours): - 05/05/18 05:44 05/05/18 07:40 05/05/18 08:00 Temperature 98.3 F 98.1 F Pulse Rate 64 62 Respiratory Rate 18 14 Blood Pressure 123/70 H 149/75 H Pulse Oximetry 93 96 95 05/05/18 09:05 05/05/18 12:54 Temperature Pulse Rate 63 Respiratory Rate 14 16 Blood Pressure Pulse Oximetry 96 Oxygen Delivery Method Room Air Oxygen Flow Rate 0 Objective Labs Result Diagrams: 05/03/18 05:39 05/04/18 11:10 Discharge Plan Discharge Plan Patient Disposition: Home Provider Discharge Instructions Diet: Low-fat Activity: as tolerated Oxygen: RT to evaluate for 02 requirements on discharge Other treatments: Change dressing to thoracentesis site as needed. Discharge Data Attending Provider: Madison Powell Admit Date/Time: 05/01/18 19:05 Quality VTE Deep Vein Thrombosis/Pulmonary Embolism Present on Admission: No
--- NOTE | 2018-05-05 13:38 | P.DS_ITS ---
History of Present Illness Date Patient Seen: 05/05/18 Time Patient Seen: 11:30 Chief complaint: STATES LUNGS ARE FILLING UP AGAIN Narrative: This an 83-year-old male with complex medical problems presenting with acute on chronic hypoxic respiratory failure secondary to recurrent right- sided pleural effusion requiring frequent thoracocentesis. Patient with underlying malignancy ( non-Hodgkin's lymphoma), chemo/radiation therapy induced cardiomyopathy, chronic dysphagia requiring PEG tube placement. Overall, reports feeling better with less dyspnea on exertion, stated that he is ready to go home.. Discharge Providers Date of admission: 05/01/18 19:05 Consults: 05/02/18 01:46 Consult to Respiratory Therapy Evaluate & Treat Comment: Physician Instructions: Evaluate and treat Discharge provider: Mara Reyna MD Summary Discharge Diagnosis: 1. Recurrent right-sided pleural effusion: Probably multifactorial, requiring frequent paracentesis,with slow re-acummulation of fluid predominantly on the R chest. Exact reason behind predominant fluid accumulation on the right chest remains unclear. Interval chest CT with no obvious signs of malignancy, including pleura, was detected. 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 If rate of fluid accumulation increases, might benefit from consideration of PleurX catheter placement. In interim, continue current diuretic therapy with oral Lasix. 2. History of non-Hodgkin's lymphoma with previous chemo/radiation therapy : with concerns for possible malignant causes behind right side at the recount pleural effusion though not confrimed by inteval chest CT. Patient to resume outpatient follow-up with his credit checker/ oncologist. 3. Congestive heart failure, acute on chronic, systolic and diastolic with pulmonary hypertension: Probably multifactorial, caused by toxicity of chemo/ radiation therapy. Cannot rule out superimposed/coexisting coronary artery disease. Interval echocardiogram during this admission with LVEF of 30-35%, moderate to severe global hypokinesis of the left ventricle, mild to moderate tricuspid regurgitation, mild dilatation of the right ventricle but with normal systolic function. Mild pulmonary hypertension at 35 mm of mercury. Might benefit from interventional cardiology consult to address possible ischemic causes behing his cardiomyopathy. Continue current management as above 4. Deconditioning/debility, multifactorial, secondarey to above, continue to treat underlying medical problems Hospital Course: T his is an 82-year-old male with complex medical problems presenting with acute on chronic hypoxic respiratory failure secondary to CHF exacerbation, re-accumulation of pleuritic fluid around the right chest with resultant compression atelectasis. During hospital stay required therapeutic thoracocentesis x2 along with IV/p.o. diuretics, breathing treatments, empiric antibiotic therapy, symptomatic and supportive care. Interval echocardiogram with evidence of biventricular failure,LVEF of 30-35%, moderate to severe global hypokinesis of the left ventricle, mild to moderate tricuspid regurgitation, mild dilatation of the right ventricle but with normal systolic function. Mild pulmonary hypertension at 35 mm of mercury. Exact reason behind the predominant accumulation of fluid on the right chest remains clear. Interval chest CT with no obvious signs of malignancy involving lungs, mediastinum, pleura. Patient was released home per his request in stable condition. Outpatient follow with primary care physician and specialists involved in his care was recommended. Status at Discharge Functional status at discharge: uses cane/walker Overall status at discharge: patient is progressing back to baseline Time Spent with Patient Greater than 30 minutes Exam Vital Signs (past 8 hours): - 05/05/18 05:44 05/05/18 07:40 05/05/18 08:00 Temperature 98.3 F 98.1 F Pulse Rate 64 62 Respiratory Rate 18 14 Blood Pressure 123/70 H 149/75 H Pulse Oximetry 93 96 95 05/05/18 09:05 05/05/18 12:54 Temperature Pulse Rate 63 Respiratory Rate 14 16 Blood Pressure Pulse Oximetry 96 Oxygen Delivery Method Room Air Oxygen Flow Rate 0 Objective Labs Result Diagrams: 05/03/18 05:39 05/04/18 11:10 Discharge Plan Discharge Plan Patient Disposition: Home Provider Discharge Instructions Diet: Low-fat Activity: as tolerated Oxygen: RT to evaluate for 02 requirements on discharge Other treatments: Change dressing to thoracentesis site as needed. Discharge Data Attending Provider: Madison Powell Admit Date/Time: 05/01/18 19:05 Quality VTE Deep Vein Thrombosis/Pulmonary Embolism Present on Admission: No
--- NOTE | 2018-05-05 14:44 | RT ---
PT. DOES NOT QUALIFY FOR HOME OXYGEN. SPO2 STABLE IN MID TO HIGH 90'S AT REST AND WITH EXERCISE
--- NOTE | 2018-05-05 15:23 | CM.DPC ---
DCP Cont: Spoke to spouse and patient today to discuss discharge plan. Stated that he would be going home, for they wre going to leave for [place], and follow up with his physician there. Patient may be discharged today, for he is back to [facility]. P: Patient is to discharge home today. Planning on going back to [place]. Sparkle Farias RN/Therapy Administrative Assistant
== END 2018-05-05 15:50 | disposition home or self-care (01) | DRG 186 ==
LOC: ED 19:03 → AC 05-02 10:52
PROVIDERS: Emergency Medicine; Hospitalist; Admitting Provider Internal Medicine; Emergency Provider Emergency Medicine; Family Provider Family Medicine; Visit Provider Internal Medicine
DX: J90 Pleural effusion, not elsewhere classified (principal); I50.43 Acute on chronic combined systolic (congestive) and diastolic (congestive) heart failure; E43 Unspecified severe protein-calorie malnutrition; I42.7 Cardiomyopathy due to drug and external agent; E87.1 Hypo-osmolality and hyponatremia; C85.90 Non-Hodgkin lymphoma, unspecified, unspecified site; T45.1X5S Adverse effect of antineoplastic and immunosuppressive drugs, sequela; E87.5 Hyperkalemia; Z93.1 Gastrostomy status; K22.2 Esophageal obstruction; Y84.2 Radiological procedure and radiotherapy as the cause of abnormal reaction of the patient, or of later complication, without mention of misadventure at the time of the procedure; E03.9 Hypothyroidism, unspecified; I27.20 Pulmonary hypertension, unspecified; Z68.21 Body mass index [BMI] 21.0-21.9, adult
CPT/HCPCS: 32555; 36415; 36591; 71045; 71046; 71250; 80048; 83615; 83880; 85025; 85610; 85730; 87070; 87075; 87205; 94640; 94760; 99283; 99285; C9113; J1650; J1940